=== PATIENT | female | born 1960 | race Caucasian/White ===

== ENCOUNTER 2019-08-22 09:54 | Outpatient (CLI) | payer MEDICARE, SELFPAY ==
[2019-08-22 10:33] LABS: Basophils Percent Auto 0.7 % (0.2-1.2); Eosinophils Absolute Auto 0.1 K/mm3 (0-0.3); Eosinophils Percent Auto 1.3 % (0-4.4); Hematocrit 41.4 % (37.0-47.0); Hemoglobin 13.2 g/dL (12.0-15.0); Immature Granulocyte Absolute 0.01 K/mm3 (0.00-0.031); Immature Granulocyte Percent A 0.2 % (0-0.5); Lymphocytes Absolute Auto 2.24 K/mm3 (0.9-3.2); Lymphocytes Percent Auto 41.6 % (18.3-44.2); Mean Corpuscular HGB Conc 31.9 g/dl (32-36); Mean Corpuscular Hemoglobin 29.1 pg (26-34); Mean Corpuscular Volume 91.4 fl (80-100); Monocytes Absolute Auto 0.3 K/mm3 (0.1-0.6); Monocytes Percent Auto 4.6 % (2.6-8.5); Neutrophils Absolute Auto 2.8 K/mm3 (1.3-6.7); Neutrophils Percent Auto 51.6 % (45.5-73.1); Platelet Count Result 344 k/mm3 (150-375); Red Blood Count 4.53 M/mm3 (4.2-5.4); Red Cell Distribution Width 12.9 % (11.5-14.5); White Blood Count 5.4 K/mm3 (4.5-10.0)
[2019-08-22 10:45] LABS: Alanine Aminotransferase 34 U/L (4-35); Albumin Level 4.6 g/dL (3.5-5.1); Alkaline Phosphatase 109 U/L (38-126); Aspartate Amino Transferase 36 U/L (14-36); Bilirubin,Total 0.3 mg/dL (0.2-1.3); Blood Urea Nitrogen 13 mg/dL (7-17); Calcium 9.4 mg/dL (8.4-10.2); Carbon Dioxide 29 mmol/L (22-30); Chloride 98 mmol/L (98-107); Cholesterol 216 mg/dL (0-200); Estimated Glomerular Filt Rate > 60; Glucose 90 mg/dL (65-105); HDL Direct 58 mg/dL; Potassium 4.4 mmol/L (3.4-5.0); Sodium 132 mmol/L (137-145); Triglycerides 107 mg/dL (<150)
[2019-08-22 10:56] LABS: LDL Cholesterol Direct 115 mg/dL
[2019-08-22 11:02] LABS: Hemoglobin A1C 5.3 % (<5.7)
== END 2019-08-22 09:55 | disposition home or self-care (01) ==
PROVIDERS: PCP Internal Medicine; Visit Provider Internal Medicine
DX: Z79.899 Other long term (current) drug therapy (principal); I10 Essential (primary) hypertension; E78.2 Mixed hyperlipidemia
CPT/HCPCS: 36415; 80048; 80061; 80076; 83036; 84443; 85025

== ENCOUNTER 2019-10-14 12:27 | Outpatient (CLI) | payer MEDICARE, SELFPAY ==
--- NOTE | ~2019-10-14 | CT_ITS ---
EXAMINATION: CT brain wo/w con DATE: 10/14/2019 13:38 INDICATION: Headache TECHNIQUE: Computed tomography (CT) of the head was performed without and with 75 mL Omnipaque-350 in travenous contrast. Sagittal and coronal reconstructions were performed. The mA was adjusted accordin g to patient size. Iterative reconstruction technique was employed. The dose-length product was 1210. 67 mGy-cm. COMPARISON: Brain MR dated 05/27/2018 FINDINGS: No acute intracranial hemorrhage, acute infarction or abnormal extra axial fluid collection. Ventricl es are normal and symmetric. No mass/mass effect. No abnormally enhancing lesions identified. Cerebra l vasculature appears normal with symmetric arborization and no evident aneurysms or hemodynamically significant stenosis. Mild calcified atherosclerotic plaque at the bilateral carotid siphons. Small a mount of dependent fluid in the left sphenoid sinus. The orbits and mastoid air cells are normal. IMPRESSION: 1. Normal brain. No acute intracranial process or abnormally enhancing brain lesions. 2. Small amount of fluid layering in the left sphenoid sinus. Correlate clinically for acute sinusiti s. Reviewed, dictated and finalized at location A. IMPRESSION: 1. Normal brain. No acute intracranial process or abnormally enhancing brain le sions. 2. Small amount of fluid layering in the left sphenoid sinus. Correlate clinica lly for acute sinusitis.
--- NOTE | ~2019-10-14 | XR_ITS ---
EXAMINATION:XR_[id number]_CR DATE: 10/14/2019 13:00 INDICATION: Right neck and shoulder pain TECHNIQUE: AP, lateral and odontoid views of the cervical spine are provided. COMPARISON: None FINDINGS: Slight reversal of the normal cervical lordosis. 2 mm retrolisthesis C5 on C6. Odontoid is intact. N ormal atlantoaxial interval. Vertebral body heights are normal. Moderate disc height loss at C5-C6 an d mild disc height loss at C4-C5. Moderate bilateral uncovertebral osteoarthritis at both these level s. Small posterior endplate osteophyte at C5 along with the slight retrolisthesis results in mild christian rowing of the central canal at this level. Multilevel mild bilateral cervical facet osteoarthritis. Prevertebral soft tissues are normal. The visualized apices of lungs are clear. IMPRESSION: 1. Moderate cervical spondylosis including 2 mm retrolisthesis C5 on C6. Reviewed, dictated and finalized at location A.
[2019-10-14 13:26] LABS: Estimated Glomerular Filt Rate > 60
== END 2019-10-14 12:28 | disposition home or self-care (01) ==
PROVIDERS: PCP Internal Medicine; Visit Provider Internal Medicine
DX: R51 Headache (principal); M25.511 Pain in right shoulder; M47.812 Spondylosis without myelopathy or radiculopathy, cervical region
CPT/HCPCS: 36415; 70470; 72040; Q9967

== ENCOUNTER 2019-10-29 10:01 | Outpatient (CLI) | payer MEDICARE, SELFPAY ==
--- NOTE | ~2019-10-29 | CT_ITS ---
EXAMINATION: CT chest wo con DATE: 10/29/2019 11:08 INDICATION: Lung nodule TECHNIQUE: Computed tomography (CT) of the chest was performed without intravenous contrast. The dose -length product (DLP) was 155.82 mGy-cm. Automated exposure control and iterative reconstruction tech [employer] were employed. COMPARISON: 01/07/2019, 04/29/2017 FINDINGS: There is a 6 mm groundglass nodule of the right lung apex on image 21. There is an unchange d 7 mm nodule of the right lower lobe on image 77. There are a few nodules measuring up to 3 mm in th e left upper lobe. There is mild emphysema. The lungs are free of focal airspace opacities. Dependent atelectasis is noted. There is no pleural effusion or pneumothorax. No pathologically enlarged thora cic lymph nodes are identified. The heart size is normal. A small sliding hiatal hernia is noted. The re is mild thoracic spondylosis. IMPRESSION: 1. Lung nodules as detailed above, probably old granulomatous disease. Follow-up CT in 6-12 months is recommended. Reviewed, dictated and finalized at location A. IMPRESSION: 1. Lung nodules as detailed above, probably old granulomatous disease. Follow-u p CT in 6-12 months is recommended.
[2019-10-29 10:45] LABS: Alanine Aminotransferase 34 U/L (4-35); Albumin Level 4.3 g/dL (3.5-5.1); Alkaline Phosphatase 95 U/L (38-126); Aspartate Amino Transferase 32 U/L (14-36); Bilirubin,Total 0.2 mg/dL (0.2-1.3); Cholesterol 187 mg/dL (0-200); HDL Direct 48 mg/dL; Triglycerides 95 mg/dL (<150)
[2019-10-29 10:57] LABS: LDL Cholesterol Direct 104 mg/dL
== END 2019-10-29 10:02 | disposition home or self-care (01) ==
PROVIDERS: PCP Internal Medicine; Visit Provider Internal Medicine
DX: E78.2 Mixed hyperlipidemia (principal); Z87.898 Personal history of other specified conditions; Z79.899 Other long term (current) drug therapy
CPT/HCPCS: 36415; 71250; 80061; 80076; 83735

== ENCOUNTER 2020-02-20 14:45 | Outpatient (CLI) | payer MEDICARE, SELFPAY ==
[2020-02-20 15:27] LABS: Add Urine Microscopic? YES; Appearance Urine Cloudy (Clear); Bilirubin Urine Negative (Negative); Blood Urine Negative (Negative); Color Urine Amber (Yellow); Glucose Urine UA Negative (Negative); Ketones Urine Negative (Negative); Leukocyte Esterase Ur Negative LEU/UL (NEGATIVE); Nitrate Urine Negative (Negative); Protein Urine Negative (Negative); RBC Urine 0-2 /hpf (0-2); Specific Grav Ur 1.012 (1.001-1.035); Squamous Epithelial Cell Urine Rare /hpf (Few); Urobilinogen Urine Negative mg/dL (<2.0); WBC Urine 0-3 /hpf (0-3)
[2020-02-20 15:38] LABS: Anion Gap 8 mmol/L (8-16); Blood Urea Nitrogen 21 mg/dL (7-17); Calcium 9.3 mg/dL (8.4-10.2); Carbon Dioxide 28 mmol/L (22-30); Chloride 101 mmol/L (98-107); Cholesterol 211 mg/dL (0-200); Estimated Glomerular Filt Rate > 60; Glucose 88 mg/dL (65-105); HDL Direct 64 mg/dL; Potassium 4.9 mmol/L (3.4-5.0); Sodium 137 mmol/L (137-145); Triglycerides 103 mg/dL (<150)
[2020-02-20 15:49] LABS: LDL Cholesterol Direct 111 mg/dL
[2020-02-20 16:05] LABS: Hemoglobin A1C 5.1 % (<5.7)
[2020-02-25 09:24] LABS: Vitamin D 1,25 (OH)2 Total 51 pg/mL (18-72); Vitamin D2 1,25 (OH)2 <8 pg/mL; Vitamin D3 1,25 (OH)2 51 pg/mL
== END 2020-02-20 14:46 | disposition home or self-care (01) ==
PROVIDERS: PCP Internal Medicine; Visit Provider Internal Medicine
DX: E55.9 Vitamin D deficiency, unspecified (principal); E78.2 Mixed hyperlipidemia; I10 Essential (primary) hypertension; Z79.899 Other long term (current) drug therapy
CPT/HCPCS: 36415; 80048; 80061; 81001; 82652; 83036

== ENCOUNTER 2020-04-07 09:02 | Emergency (ER) | payer MEDICARE, SELFPAY ==
[2020-04-07] VITALS (21 sets, daily range): BP systolic 141–163; BP diastolic 59–84; PULSE 63–82; RESP 11–19; TEMP 36; O2SAT 97–100
--- NOTE | ~2020-04-07 | US_ITS ---
EXAMINATION: US right upper quadrant DATE: 04/07/2020 10:14 INDICATION: Abdominal pain. TECHNIQUE: Multiple grayscale and Doppler ultrasound images of the abdomen were obtained. COMPARISON: CT abdomen and pelvis 01/07/2019 FINDINGS: The visualized portions of the head of the pancreas are normal. The liver is normal without focal lesion. No liver surface nodularity. There is normal flow in main portal vein. There are galls tones in the gallbladder, which is distended. Gallbladder wall thickening is noted. There is a positi ve sonographic Sr sign. The common duct is normal and measures 5 mm. IMPRESSION: 1. Acute cholecystitis. Reviewed, dictated and finalized at location A. SPORT CONDUCTOR IMPRESSION: 1. Acute cholecystitis.
--- NOTE | 2020-04-07 09:18 | ED.GENADULT ---
HPI - General Adult General Chief complaint: Abdominal Pain Stated complaint: Upper Right ABD Pain, Sent from PCP Time Seen by Provider: 04/07/20 09:05 Source: RN notes reviewed History of Present Illness HPI narrative: Patient presents emergency department from home for right upper quad abdominal pain. Patient states pain began approximately 2:30 AM this morning located right upper quadrant radiates around to the right back described as aching in nature. Associate with nausea. Denies any fevers or chills chest pain shortness of breath vomiting diarrhea or any other symptoms. Was seen by her PCP this morning and referred to the ED for further evaluation Related Data Home Medications Medication Instructions Recorded Confirmed cholecalciferol (vitamin D3) 25 1,000 unit PO DAILY 04/14/19 03/01/20 mcg (1,000 unit) capsule multivitamin 1 tablet PO DAILY 04/14/19 03/01/20 promethazine 25 mg tablet 25 mg PO ONCE PRN tablet 08/28/19 03/01/20 magnesium citrate 100 mg tablet 750 mg PO DAILY tablet 03/01/20 03/01/20 trazodone 100 mg tablet See Rx Instructions .ROUTE 03/01/20 03/01/20 .COMPLEX PRN tablet cetirizine [Zyrtec] 10 mg PO DAILY 04/07/20 duloxetine 30 mg PO DAILY 04/07/20 omega 8-boa-hmm-fish oil [Fish Oil] 4,000 PO 04/07/20 polyethylene glycol 3350 See Rx Instructions .ROUTE .COMPLEX 04/07/20 Allergies Allergy/AdvReac Type Severity Reaction Status Date / Time amoxicillin Allergy Unknown Rash Verified 04/07/20 09:19 Penicillins Allergy Unknown Rash Verified 04/07/20 09:19 Sulfa (Sulfonamide Allergy Unknown Rash Verified 04/07/20 09:19 Antibiotics) levofloxacin AdvReac Unknown Other Verified 04/07/20 09:19 shellfish derived AdvReac Unknown Anaphylaxis Verified 04/07/20 09:19 Neawllw-Lry-Jrc Reductase AdvReac Unknown Muscle Pain Verified 04/07/20 09:19 Inhibitor Review of Systems Review of Systems: Narrative: Gen.: Denies fevers or chills ENT: Denies congestion Respiratory: Denies shortness of breath or cough CV: Denies chest pain or palpitations GI: See HPI denies burning, urgency, frequency or hematuria Musculoskeletal: Denies back pain or muscle pain Neuro: Denies numbness, tingling, weakness or focal weakness Skin: Denies rash Except as documented, all other systems reviewed and negative [facility] Past Medical History Medical History Anxiety Benign essential hypertension BMI 30.0-30.9,adult Colon cancer screening Dyslipidemia Encounter for preventive health examination Encounter for routine adult health examination without abnormal findings Encounter for screening mammogram for malignant neoplasm of breast Exposure to COVID-19 virus Follow up Frequent headaches Hx of solitary pulmonary nodule Hyperlipidemia Influenza vaccine needed Insomnia Lung nodule Migraines 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) Mother Family history of obesity Cerebrovascular accident Family history of heart disease in male family member before age 55 Sibling Depression Cerebrovascular accident Family history of malignant neoplasm of breast in first degree relative Family history of heart disease in male family member before age 55 Father Malignant neoplasm of prostate Family history of heart disease in male family member before age 55 Social History Social History Smoking status: Former smoker Second hand tobacco smoke exposure: No Smoking end date: 05/07/10 Alcohol intake: never Gender identity (if verbalized by the patient): Female Exam Narrative: Exam Narrative: APPEARANCE: No acute distress, nontoxic, resting in bed HEENT: Normocephalic
[2020-04-07 09:31] LABS: Basophils Percent Auto 0.1 % (0.2-1.2); Eosinophils Percent Auto 0.3 % (0-4.4); Hematocrit 37.5 % (37.0-47.0); Hemoglobin 12.5 g/dL (12.0-15.0); Immature Granulocyte Absolute 0.01 K/mm3 (0.00-0.031); Immature Granulocyte Percent A 0.1 % (0-0.5); Lymphocytes Absolute Auto 1.44 K/mm3 (0.9-3.2); Lymphocytes Percent Auto 21.3 % (18.3-44.2); Mean Corpuscular HGB Conc 33.3 g/dl (32-36); Mean Corpuscular Hemoglobin 29.9 pg (26-34); Mean Corpuscular Volume 89.7 fl (80-100); Mean Platelet Volume 10.9 fl (7.4-10.4); Monocytes Absolute Auto 0.2 K/mm3 (0.1-0.6); Monocytes Percent Auto 2.2 % (2.6-8.5); Neutrophils Absolute Auto 5.1 K/mm3 (1.3-6.7); Platelet Count Result 316 k/mm3 (150-375); Red Blood Count 4.18 M/mm3 (4.2-5.4); Red Cell Distribution Width 12.8 % (11.5-14.5); White Blood Count 6.8 K/mm3 (4.5-10.0)
[2020-04-07] MEDS: ONDANSETRON INJ 4 MG/2 ML VIAL IV PUSH (09:39)
[2020-04-07] MEDS: SODIUM CHLORIDE 0.9% IV 1,000 ML 999 ML IV CONT (09:40)
[2020-04-07 09:43] LABS: Alanine Aminotransferase 34 U/L (4-35); Albumin Level 4.3 g/dL (3.5-5.1); Alkaline Phosphatase 98 U/L (38-126); Anion Gap 8 mmol/L (8-16); Aspartate Amino Transferase 29 U/L (14-36); Bilirubin,Total 0.1 mg/dL (0.2-1.3); Blood Urea Nitrogen 15 mg/dL (7-17); Calcium 9.3 mg/dL (8.4-10.2); Carbon Dioxide 27 mmol/L (22-30); Chloride 105 mmol/L (98-107); Estimated CRCL calculation 76 ml/min; Estimated Glomerular Filt Rate > 60; Glucose 118 mg/dL (65-105); Lipase 133 U/L (23-300); Potassium 3.8 mmol/L (3.4-5.0); Sodium 140 mmol/L (137-145)
[2020-04-07 09:59] LABS: Add Urine Microscopic? YES; Appearance Urine Cloudy (Clear); Bilirubin Urine Negative (Negative); Blood Urine Negative (Negative); Color Urine Yellow (Yellow); Glucose Urine UA Negative (Negative); Ketones Urine Negative (Negative); Leukocyte Esterase Ur Negative LEU/UL (Negative); Mucus Urine Rare /lpf; Nitrate Urine Negative (Negative); Protein Urine 2+ mg/dL (Negative); RBC Urine 0-2 /hpf (0-2); Specific Grav Ur 1.019 (1.001-1.035); Squamous Epithelial Cell Urine Occasional /hpf (Few); Transitional Epi Cells Urine Rare /hpf (None Seen); Urobilinogen Urine Negative mg/dL (<2.0); WBC Urine 0-3 /hpf
--- NOTE | 2020-04-07 10:57 | PC.NURSE ---
pt refuses morphine at this time. will notify nurse if pain worsens. current level 3/10
[2020-04-07] MEDS: CEPHALEXIN 500 MG CAPSULE PO (11:43)
[2020-04-07] MEDS: MORPHINE SULFATE (*CRX) 2 MG/ML INJ IV PUSH (11:44)
== END 2020-04-07 13:04 | disposition home or self-care (01) ==
PROVIDERS: Emergency Provider Emergency Medicine; PCP Internal Medicine
DX: K81.0 Acute cholecystitis (principal); F41.9 Anxiety disorder, unspecified; I10 Essential (primary) hypertension; E78.5 Hyperlipidemia, unspecified
CPT/HCPCS: 36415; 76705; 80053; 81001; 83690; 85025; 96365; 96375; 99284; A9270; J0131; J2270; J2405; J7030

== ENCOUNTER 2020-04-08 12:22 | Outpatient (CLI) | payer MEDICARE, SELFPAY ==
--- NOTE | 2020-04-08 12:24 | ECG_ITS ---
Measurements Intervals [place] Rate: 61 P: 49 NC: 160 QRS: 28 QRSD: 77 T: 29 QT: 383 QTc: 386 Interpretive Statements SINUS RHYTHM BASELINE ARTIFACT- I, II, III, AVR, AVL, AVF, V6 NORMAL ECG Electronically Signed On 04-08-2020 13:01:17 [employer] by Jb Carroll D.O.
[2020-04-08 13:22] LABS: Alanine Aminotransferase 33 U/L (4-35); Albumin Level 4.3 g/dL (3.5-5.1); Alkaline Phosphatase 96 U/L (38-126); Amylase 84 U/L (30-110); Aspartate Amino Transferase 30 U/L (14-36); Bilirubin,Total 0.3 mg/dL (0.2-1.3); Lipase 119 U/L (23-300)
== END 2020-04-08 12:23 | disposition home or self-care (01) ==
LOC: ANHSURGERY 12:24
PROVIDERS: PCP Internal Medicine; Visit Provider Surgery
DX: Z01.810 Encounter for preprocedural cardiovascular examination (principal); K80.10 Calculus of gallbladder with chronic cholecystitis without obstruction; E78.5 Hyperlipidemia, unspecified
CPT/HCPCS: 36415; 80076; 82150; 83690; 86850; 86900; 86901; 93005

== ENCOUNTER 2020-04-10 00:38 | Outpatient (CLI) | payer MEDICARE, SELFPAY ==
[2020-04-10 19:13] LABS: SARS-CoV-2 RNA PCR Negative
== END 2020-04-10 00:39 | disposition home or self-care (01) ==
LOC: ANHCOVIDDT 00:38
PROVIDERS: PCP Internal Medicine; Visit Provider Surgery
DX: Z01.812 Encounter for preprocedural laboratory examination (principal); Z20.828 Contact with and (suspected) exposure to other viral communicable diseases
CPT/HCPCS: 87635; C9803; U0003

== ENCOUNTER 2020-04-13 01:22 | Day surgery (SDC) | payer MEDICARE, SELFPAY ==
[2020-04-08 11:56] VITALS: BMI 30.9
[2020-04-13] VITALS (8 sets, daily range): BP systolic 113–146; BP diastolic 65–80; PULSE 73–96; RESP 10–20; TEMP 36.2–36.3; O2SAT 96–100
--- NOTE | 2020-04-13 11:10 | WPDHPUPDATE1 ---
History and Physical Update Update Date/Time: 04/13/20 11:10 History and Physical has been reviewed, including an updated exam of the patient. There are NO changes in the patient's condition. Risks, benefits, and alternatives have been discussed and questions answered. Patient agrees to proceed with procedure.
[2020-04-13] MEDS: ACETAMINOPHEN 500 MG TABLET 1000 MG PO (11:13)
[2020-04-13] MEDS: LACTATED RINGERS 1,000 ML 30 ML IV CONT ×2 (11:55→14:43)
[2020-04-13] MEDS: KETOROLAC 15 MG/ML VIAL (*BKC) IV PUSH (12:03)
--- NOTE | 2020-04-13 12:36 | WPDANESEPPF ---
Anes - Initial Pre Proc Eval Procedure: Operation Date: 04/13/20 13:00 Proposed Procedures p Laparoscopic Cholecystectomy - Josh Randhawa MD Date/Time: 04/13/20 12:36 Surgeon: Josh Randhawa MD Pre Op Diagnosis: Cholecystitis with Stones Patient Data Age: 59 Gender: F Height: 5 ft 4 in Weight: 81.8 kg Allergies Allergy/AdvReac Type Severity Reaction Status Date / Time amoxicillin Allergy Unknown Rash Verified 04/13/20 12:03 Penicillins Allergy Unknown Rash Verified 04/13/20 12:03 Sulfa (Sulfonamide Allergy Unknown Rash Verified 04/13/20 12:03 Antibiotics) levofloxacin AdvReac Unknown Other Verified 04/13/20 12:03 shellfish derived AdvReac Unknown Anaphylaxis Verified 04/13/20 12:03 Fsqxcub-Dff-Uuh Reductase AdvReac Unknown Muscle Pain Verified 04/13/20 12:03 Inhibitor Home Medications Medication Instructions Recorded Confirmed Type cholecalciferol (vitamin D3) 25 1,000 unit PO DAILY 04/14/19 04/13/20 History mcg (1,000 unit) capsule multivitamin 1 tablet PO DAILY 04/14/19 04/13/20 History chlorhexidine gluconate 0.12 % 15 ml BUCCAL BID #15 ml 07/21/19 04/13/20 Rx mouthwash promethazine 25 mg tablet 25 mg PO ONCE PRN tablet 08/28/19 04/08/20 History tizanidine 4 mg tablet 4 mg PO TID PRN #90 tablet 09/30/19 04/13/20 Rx magnesium citrate 100 mg tablet 375 mg PO BID tablet 03/01/20 04/13/20 History trazodone 100 mg tablet See Rx Instructions .ROUTE 03/01/20 04/08/20 History .COMPLEX PRN tablet topiramate 100 mg tablet 100 mg PO .HS #30 tablet 03/12/20 04/13/20 Rx Emgality Pen 120 mg/mL 240 mg SUBCUT MONTHLY #2 ml NS 03/22/20 04/13/20 Rx subcutaneous pen injector pravastatin 40 mg tablet 40 mg PO DAILY #30 tablet 03/22/20 04/13/20 Rx cephalexin [Keflex] 500 mg PO Q6H #40 cap 04/07/20 04/13/20 Rx cetirizine [Zyrtec] 10 mg PO HS 04/07/20 04/13/20 History duloxetine 30 mg PO HS 04/07/20 04/13/20 History hydrocodone-acetaminophen 1 tablet PO Q4H PRN #10 tablet 04/07/20 04/13/20 Rx ibuprofen [IBU] 600 mg PO Q6H PRN #20 tablet 04/07/20 04/13/20 Rx omega 4-omh-xzg-fish oil [Fish Oil] 1 cap PO QAM 04/07/20 04/13/20 History polyethylene glycol 3350 See Rx Instructions .ROUTE .COMPLEX 04/07/20 04/08/20 History colesevelam 625 mg tablet See Rx Instructions .ROUTE 04/08/20 Rx .COMPLEX #540 each ezetimibe [Zetia] 5 mg PO HS 04/08/20 04/13/20 History lisinopril 10 mg PO HS 04/08/20 04/13/20 History verapamil 180 mg PO QAM 04/08/20 04/13/20 History Patient hx anesthesia problems: none Family hx anesthesia problems: none PMFSH Past Medical History Medical History Anxiety Benign essential hypertension BMI 30.0-30.9,adult Colon cancer screening Depression Dyslipidemia Encounter for preventive health examination Encounter for routine adult health examination without abnormal findings Encounter for screening mammogram for malignant neoplasm of breast Exposure to COVID-19 virus Follow up Frequent headaches GERD (gastroesophageal reflux disease) Hx of solitary pulmonary nodule Hyperlipidemia Influenza vaccine needed Insomnia Lung nodule Migraines 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 Oral lichen planus Post menopausal syndrome Postmenopausal Right shoulder pain RUQ abdominal pain Sinusitis Sore throat Statin intolerance Vitamin D deficiency Surgical History Surgical History History of rhinoplasty History of tonsillectomy and adenoidectomy S/P scar revision [place] teeth removed Family History Family History Mother Family history of obesity Cerebrovascular accident Family history of heart disease in male family member before age 55 Hypertension Sibling Depression Cerebrovascular accident Family history of malignant neoplasm of breast in first degree relative Family history of heart disease in male family member b
[2020-04-13] MEDS: ceFAZolin 2 GM/D5W 50 ML 2 GM/50 ML BAG IVPB (13:14)
--- NOTE | 2020-04-13 14:40 | P.OP_ITS ---
Procedure Note - Detailed Date of procedure: 04/13/20 Pre-op diagnosis: Cholecystitis with Stones Chronic cholecystitis, cholelithiasis Post-op diagnosis: same Procedure performed: Laparoscopic cholecystectomy Description of procedure: The patient was taken to surgery and induced into general anesthesia. The abdomen was prepped and draped. Trocars were placed in the usual fashion using 0.5% Marcaine with epinephrine and applied Medical optical trocars. A 5 millimeter camera was used. The gallbladder was encased with omental adhesions. These adhesions were taken down 1st from the liver edge and then from around the upper aspect of the gallbladder. Once the fundus was exposed, the gallbladder was decompressed with a laparoscopic aspirator. The cholecystotomy was closed with a Vicryl endo-loop. The gallbladder was retracted anterosuperiorly. Many more adhesions to the gallbladder were taken down so that the cholecystohepatic triangle was exposed. Traction was placed on the infundibulum. The cystic duct and cystic artery were dissected out very clearly. The gallbladder was dissected off the liver at its lower 3rd. Critical view was achieved. We securely clipped and divided the cystic duct and cystic artery. The gallbladder was then further retracted so that the peritoneal attachments to the liver could be divided. Once the gallbladder was freed entirely, it was placed in an Endo-Catch bag and retrieved through the 10 11 epigastric trocar site. The epigastric trocar was then replaced. We reviewed the right upper quadrant. It was irrigated and suctioned. Some additional cautery was required. Eventually, all looked good with no evidence of bleeding or bile leakage. We evacuated CO2 and removed the trocar sleeves. The fascia at the epigastric trocar site was closed with 0 Vicryl suture. Skin wounds were closed with subcuticular 4 O Monocryl skin suture. The wounds were dressed with Exofin surgical adhesive. Patient was awakened and taken to recovery in good condition. Sponge and needle counts were correct x2. Anesthesia: GETA and local (0.5% Marcaine with epinephrine) Surgeon: Josh Randhawa MD Equipment Maint Tech: Christopher GUSMAN Estimated blood loss (mL): 20 Drains: No Packing: No Pathology: yes (Gallbladder) Complications: None Condition: stable Disposition: PACU Findings: Chronic inflammation, many omental adhesions, several gallstones noted. No biliary ductal dilatation, no liver abnormalities.
[2020-04-13] MEDS: oxyCODONE HCL (*CRX) 5 MG TAB IR PO (15:31)
== END 2020-04-13 16:25 | disposition home or self-care (01) ==
PROVIDERS: PCP Internal Medicine; Visit Provider Surgery
PROC: 0FT44ZZ Resection of Gallbladder, Percutaneous Endoscopic Approach (ICD-10-PCS; CPT 47562; principal; 2020-04-13 13:00)
DX: K80.10 Calculus of gallbladder with chronic cholecystitis without obstruction (principal); I10 Essential (primary) hypertension; E78.5 Hyperlipidemia, unspecified; K21.9 Gastro-esophageal reflux disease without esophagitis; E55.9 Vitamin D deficiency, unspecified; F41.8 Other specified anxiety disorders; Z87.891 Personal history of nicotine dependence
CPT/HCPCS: 47562; 88304; A9270; C1713; J0330; J0690; J1100; J1885; J2250; J2405; J2704; J2710; J3010; J7120

== ENCOUNTER → 2020-07-17 06:59 | Outpatient (CLI) | payer MEDICARE, SELFPAY ==
[2020-07-17 18:54] LABS: SARS-CoV-2 RNA PCR Negative
== END ==
PROVIDERS: PCP Internal Medicine; Visit Provider Internal Medicine
DX: Z20.822 Contact with and (suspected) exposure to COVID-19 (principal); R05 Cough
CPT/HCPCS: C9803; U0003; U0005

== ENCOUNTER 2020-10-26 12:56 | Outpatient (CLI) | payer MEDICARE, SELFPAY ==
--- NOTE | ~2020-10-26 | DEXA_ITS ---
Bone Density Report Name: Cecile Lilly Age: 60 Sex: Female Ethnicity: White Date of : 1960 Indication: postmenopausal; height loss; prior fracture; Referring Provider: JERMAN RODRIGUEZ Study: Bone densitometry was performed. Exam Date: October 26, 2020 Accession number: [id number] Bone Density: Region BMD T-score Z-score Classification AP Spine (L1-L4) 0.867 -1.6 -0.1 Osteopenia Femoral Neck (Left) 0.639 -1.9 -0.5 Osteopenia Total Hip (Left) 0.829 -0.9 0.1 Normal Total Hip Bilateral Avg 0.880 -0.5 0.5 Normal Femoral Neck (Right) 0.748 -0.9 0.4 Normal Total Hip (Right) 0.929 -0.1 0.9 Normal World Health Organization criteria for BMD impression classify patients as: Normal (T-score at or above -1.0), Osteopenia (T-score between -1.0 and -2.5), or Osteoporosis (T-score at or below -2.5). 10-year Fracture Risk(1): Major Osteoporotic Fracture 15% Hip Fracture 1.8% Reported Risk Factors: [place] (), Neck BMD=0.639, BMI=28.9, previous fracture (1) FRAX(R) Version 3.08. Fracture probability calculated for an untreated patient. Fracture probability may be lower if the patient has received treatment. Previous Exams: Region Exam Age BMD T-score BMD Change BMD Change Date g/cm2 vs Baseline vs Previous AP Spine(L1-L4) 10/26/2020 60 0.867 -1.6 -0.084(-8.8%)# -0.084(-8.8%)# 02/02/2010 49 0.951 -0.9 Total Hip(Left) 10/26/2020 60 0.829 -0.9 -0.089(-9.7%)# -0.089(-9.7%)# 02/02/2010 49 0.918 -0.2 Total Hip(Right) 10/26/2020 60 0.929 -0.1 0.012(1.3%)# 0.012(1.3%)# 02/02/2010 49 0.917 -0.2 *Denotes significance at 95% confidence level, LSC for AP Spine = 0.022 g/cm2, LSC for Total Hip = 0.027 g/cm2 Clinical Information Provided by Patient: Has had a low trauma fracture Has used the following medications: Vitamin D Patient maximum height was 64.5 No regular weight bearing exercise Onset of menses at age 14 Number of children 0 Impression: The patient has low bone mass, based on the Left Femoral Neck T-score. The patient has an estimated ten-year risk of hip fracture of 1.8% and an estimated ten-year risk of major fracture of 15%, based on the WHO FRAX algorithm. The patient has risk factors, including: previous fracture. No significant bone loss was observed. There is hypertrophic degenerative change of the lumbar spine, which results in higher than expected spine bone mineral density measurements. These spine BMD and T sco
== END 2020-10-26 12:57 | disposition home or self-care (01) ==
PROVIDERS: PCP Internal Medicine; Visit Provider Internal Medicine
DX: M85.88 Other specified disorders of bone density and structure, other site (principal); M85.852 Other specified disorders of bone density and structure, left thigh
CPT/HCPCS: 77080

== ENCOUNTER 2020-11-16 13:02 | Outpatient (CLI) | payer MEDICARE, SELFPAY ==
--- NOTE | ~2020-11-16 | CT_ITS ---
EXAMINATION: CT diagnostic chest wo con EXAM DATE: 11/16/2020 13:31 INDICATION: Six-month follow-up Solitary pulmonary nodule. TECHNIQUE: Spiral CT of the chest without contrast. Axial, coronal and sagittal images of the chest were reviewed. Coronal maximum intensity pixel images of chest reviewed. The dose-length product ( DLP) for this examination was 82.72 mGy-cm. The exposure was tailored according to patient size (aut o mA exposure control), and iterative reconstruction (ASIR) was used as additional dose reduction katharine hnique. Comparison is made to prior examination from 10/29/2019. FINDINGS: There is 7 mm right lower lobe noncalcified granuloma unchanged. Groundglass subsolid righ t upper lobe nodule on image 19 also stable, along with several other smaller right upper lobe ground glass nodules. Likely postinfectious. There is mild emphysema. No endobronchial nodule. There are no pleural or pericardial effusions. Tracheobronchial tree is patent. There is no mediastinal, hilar or axillary lymphadenopathy. There is no pneumothorax. Heart normal in size. No evidence of co ronary arterial calcification. Cholecystectomy clips. Upper abdomen is unremarkable. There is thor acic spondylosis without osteoblastic or osteolytic lesions identified. IMPRESSION: 1. Stable nodules likely post infectious. 2. Mild emphysema. Reviewed, dictated and finalized at location A.
== END 2020-11-16 13:03 | disposition home or self-care (01) ==
PROVIDERS: PCP Internal Medicine; Visit Provider Internal Medicine
DX: R91.8 Other nonspecific abnormal finding of lung field (principal); J43.9 Emphysema, unspecified
CPT/HCPCS: 71250

== ENCOUNTER → 2020-11-22 08:23 | Outpatient (CLI) | payer MEDICARE, SELFPAY ==
[2020-11-22 20:30] LABS: SARS-CoV-2 RNA PCR Negative
== END ==
PROVIDERS: PCP Internal Medicine; Visit Provider Internal Medicine
DX: R68.89 Other general symptoms and signs (principal); Z20.822 Contact with and (suspected) exposure to COVID-19
CPT/HCPCS: C9803; U0003; U0005

== ENCOUNTER 2020-11-25 15:45 | Outpatient (CLI) | payer MEDICARE, SELFPAY ==
[2020-11-25 16:39] LABS: Anion Gap 11 mmol/L (8-16); Blood Urea Nitrogen 17 mg/dL (7-17); Calcium 9.5 mg/dL (8.4-10.2); Carbon Dioxide 23 mmol/L (22-30); Chloride 101 mmol/L (98-107); Cholesterol 191 mg/dL (0-200); Estimated Glomerular Filt Rate 56; Glucose 97 mg/dL (65-110); HDL Direct 69 mg/dL; Potassium 4.6 mmol/L (3.4-5.0); Sodium 135 mmol/L (137-145); Triglycerides 66 mg/dL (<150)
[2020-11-25 16:50] LABS: LDL Cholesterol Direct 77 mg/dL
[2020-11-25 17:59] LABS: Free T4 Free Thyroxine 0.83 ng/mL (0.78-2.19)
[2020-11-30 19:55] LABS: Homocysteine 8.5 umol/L (<10.4)
== END 2020-11-25 15:46 | disposition home or self-care (01) ==
LOC: ANHLAB 15:47
PROVIDERS: PCP Internal Medicine; Visit Provider Internal Medicine
DX: E78.2 Mixed hyperlipidemia (principal); Z79.899 Other long term (current) drug therapy; I10 Essential (primary) hypertension
CPT/HCPCS: 36415; 80048; 80061; 83090; 84439; 84443

== ENCOUNTER → 2020-11-30 11:04 | Outpatient (CLI) | payer MEDICARE, SELFPAY ==
--- NOTE | ~2020-11-30 | XR_ITS ---
EXAMINATION: XR barium swallow EXAM DATE: 11/30/2020 11:47 INDICATION: R13.10 - Dysphagia, unspecified . Sometimes pills get stuck. TECHNIQUE: Standard thick followed by thin contrast barium esophagram examination was performed by Dr Joselyn Tejeda, radiologist. Additionally, patient swallowed an 11 mm tablet. Pulsed dose reduction fl uoroscopy was used with fluoroscopic time of 0.9 minutes. The DAP for this procedure was 0.5 Gycm2. A total of 182 images obtained for the exam. FINDINGS: There is approximately 6 mm round contour abnormality in the right vallecula inferolaterall y. Correlation is made to a prior MRI examination from 2006, and there is some asymmetry in the vall ecula in this exact location. Uncertain histology or reason for this finding, but given its smooth ma rgin and that there is some evidence it was present 2006, probably not a clinically significant findi ng. If it were to be further evaluated, direct visualization would be made. There is no esophageal stricture or mass identified. There are no esophageal diverticula. Small to m oderate sliding gastroesophageal hiatal hernia. Reflux was not demonstrated during the examination. Asad mendoza was able to ingest an 11 mm barium tablet without difficulty. Correlation was made with prior cervical MRI examination 2006. There is slight asymmetry in the thakur cula on that exam IMPRESSION: 1. Small round smooth contour abnormality in right vallecula, most likely chronic and not a clinical ly significant finding. 2. Small to moderate sliding gastroesophageal hiatal hernia. Reviewed, dictated and finalized at location G. IMPRESSION: 1. Small round smooth contour abnormality in right vallecula, most likely cafeteria or lunchroom checker samantha and not a clinically significant finding. 2. Small to moderate sliding gastroesophageal hiatal hernia.
== END ==
PROVIDERS: PCP Internal Medicine; Visit Provider Otolaryngology
DX: R13.10 Dysphagia, unspecified (principal); K44.9 Diaphragmatic hernia without obstruction or gangrene
CPT/HCPCS: 74220

== ENCOUNTER → 2020-12-28 02:48 | Outpatient (CLI) | payer MEDICARE, SELFPAY ==
[2020-12-28 19:42] LABS: SARS-CoV-2 RNA PCR Negative
== END ==
PROVIDERS: PCP Internal Medicine; Visit Provider Internal Medicine
DX: Z20.828 Contact with and (suspected) exposure to other viral communicable diseases (principal)
CPT/HCPCS: C9803; U0003; U0005

== ENCOUNTER 2021-04-16 09:05 | Outpatient (CLI) | payer MEDICARE, SELFPAY ==
[2021-04-16 09:33] LABS: Cholesterol 200 mg/dL (0-200); HDL Direct 63 mg/dL; Triglycerides 82 mg/dL (<150)
[2021-04-16 09:44] LABS: LDL Cholesterol Direct 99 mg/dL
== END 2021-04-16 09:06 | disposition home or self-care (01) ==
LOC: ANHLAB 09:07
PROVIDERS: PCP Internal Medicine; Visit Provider Internal Medicine
DX: E78.5 Hyperlipidemia, unspecified (principal)
CPT/HCPCS: 36415; 80061

== ENCOUNTER 2021-05-09 08:40 | Outpatient (CLI) | payer MEDICARE, SELFPAY ==
[2021-05-09 10:55] LABS: Influenza A QL RT-PCR Negative (Negative); Influenza B QL RT-PCR Negative (Negative); SARS-CoV-2 RNA PCR Negative (Negative)
== END 2021-05-09 08:41 | disposition home or self-care (01) ==
LOC: CHSLAB 08:46
PROVIDERS: PCP Internal Medicine; Visit Provider Internal Medicine
DX: R50.9 Fever, unspecified (principal); R05.9 Cough, unspecified; Z20.822 Contact with and (suspected) exposure to COVID-19
CPT/HCPCS: 87502; C9803; U0003; U0005

== ENCOUNTER → 2021-11-11 02:02 | Outpatient (CLI) | payer MEDICARE, SELFPAY ==
[2021-11-11 12:26] LABS: SARS-CoV-2 RNA PCR Negative
== END ==
PROVIDERS: PCP Internal Medicine; Visit Provider Internal Medicine
DX: Z01.818 Encounter for other preprocedural examination (principal); R68.89 Other general symptoms and signs
CPT/HCPCS: C9803; U0003; U0005

== ENCOUNTER 2021-11-29 18:01 | Outpatient (CLI) | payer MEDICARE, SELFPAY ==
--- NOTE | ~2021-11-29 | CT_ITS ---
EXAMINATION: CT lung screening DATE: 11/29/2021 18:22 INDICATION: Solitary pulmonary nodule TECHNIQUE: Computed tomography (CT) of the chest was performed without intravenous contrast. The dose -length product (DLP) was 79.06 mGy-cm. Automated exposure control and iterative reconstruction techn ique were employed. COMPARISON: 11/16/2020, 10/29/2019 FINDINGS: There is a stable 6 mm groundglass nodule of the right lung apex. There is a stable 7 mm no dule of the right lower lobe with smaller adjacent nodules. There are stable small nodules in the lef t upper lobe measuring up to 3 mm. No new pulmonary nodules are identified. The lungs are free of acu te opacities. No pleural effusion or pneumothorax. No pathologically enlarged thoracic lymph nodes ar e identified. The heart size is normal. Calcified coronary artery atherosclerosis is noted. There is mild thoracic spondylosis. IMPRESSION: 1. Stable pulmonary nodules, likely postinfectious/old granulomatous disease. Reviewed, dictated and finalized at location B.
== END 2021-11-29 18:02 | disposition home or self-care (01) ==
PROVIDERS: PCP Internal Medicine; Visit Provider Internal Medicine
DX: R91.8 Other nonspecific abnormal finding of lung field (principal)
CPT/HCPCS: 71250; 71271

== ENCOUNTER 2022-01-03 10:12 | Outpatient (CLI) | payer MEDICARE, SELFPAY ==
[2022-01-03 10:44] LABS: CRP < 0.5 mg/dL (<1.0)
[2022-01-03 11:07] LABS: Erythrocyte Sedimentation Rate 19 mm/hr (0-20)
== END 2022-01-03 10:13 | disposition home or self-care (01) ==
LOC: ANHLAB 10:15
PROVIDERS: PCP Internal Medicine; Visit Provider Internal Medicine
DX: Z79.899 Other long term (current) drug therapy (principal); G43.909 Migraine, unspecified, not intractable, without status migrainosus
CPT/HCPCS: 36415; 85652; 86140

== ENCOUNTER 2022-01-11 10:43 | Outpatient (CLI) | payer MEDICARE, SELFPAY ==
--- NOTE | 2022-01-11 10:30 | ECG_ITS ---
Measurements Intervals Tully Rate: 78 P: 50 ID: 140 QRS: 34 QRSD: 80 T: 27 QT: 341 QTc: 388 Interpretive Statements SINUS RHYTHM LOW QRS VOLTAGE IN PRECORDIAL LEADS BASELINE ARTIFACT- I, II, III, AVR, AVL, AVF, V1-V6 NORMAL ECG COMPARED TO ECG 04/08/2020 13:21:58 NO SIGNIFICANT CHANGES Electronically Signed On 01-11-2022 12:42:29 CDT by Jb Carroll D.O.
== END 2022-01-11 10:44 | disposition home or self-care (01) ==
PROVIDERS: PCP Internal Medicine; Visit Provider Otolaryngology
DX: Z01.810 Encounter for preprocedural cardiovascular examination (principal); E78.2 Mixed hyperlipidemia
CPT/HCPCS: 93005

== ENCOUNTER 2022-01-13 01:24 | Day surgery (SDC) | payer MEDICARE, SELFPAY ==
[2022-01-11 09:41] VITALS: BMI 28.3
--- NOTE | 2022-01-11 09:47 | PC.NURSE ---
Addendum entered by Angela Carlson RN 01/11/22 10:31: PT MAY TAKE DULOXETINE AND TIZANIDINE (IF NEEDED) MORNING OF SURGERY WITH A SMALL SIP OF WATER. Original Note: Report to the Outpatient Waiting Room, entrance under the green pavilion located off [facility], at time _1245_ on date _[id number]_. OR Time: _245pm_. - You and your visitor will be asked to self-screen and do not enter if you have any COVID symptoms. - Only one visitor and NO children visitors are allowed at this time. - The patient visitor is requested to leave or wait in car when not with patient due to restrictions. - A mask is required within the hospital. Patients may have clear liquids (water, carbonated beverages, clear teas, apple juice) until 3 hours prior to surgery with a maximum of 20 ounces. - No food from midnight until time of surgery Take the following medications with a SIP of water the morning of surgery: ____Prednisone and nose sprays Medications to discontinue per physician All vitamins and supplements Date to take last dose____stop today. Please no make-up, nail bahraini, hairspray, perfume, deodorant, or body powder the day of surgery. No jewelry (including any body piercings) or valuables the day of surgery, leave them at home. Please take a shower or bath the night before, or the morning of, surgery with an antibacterial soap. Wear comfortable, loose fitting clothing. - Jewelry must be removed prior to entering the operating room. Rings and piercings that are not removed may be cut off. - The hospital will not accept responsibility for valuables. - Please leave all valuables, including medications, at home the day of surgery. If you are going home after surgery, a licensed ambulette driver must drive you home. - NO public transportation without another adult. - We recommend that an adult stay with you for 24 hours following discharge. - We also recommend that you do not drive, make important decision, drink alcoholic beverages, or take any drugs that were not prescribed by your health care provider for at least 24 hours after your discharge time. Follow any additional instructions given to you from your surgeon. If you or anyone in your household have experienced Covid symptoms in the past week, please notify your surgeon or the nurse liaison at the phone number below for possible testing. Telephone instructions given to __Patient___and asked if any additional questions and then verbalized understanding. Patient advised to call surgeon office or pre surgery nurse liaison [phone] if any additional questions.
--- NOTE | 2022-01-12 07:51 | PM.IMHP ---
H&P: HPI History of Present Illness Date/Time: 01/12/22 07:51 Chief Complaint: Left vision loss left-sided giant cell arteritis temporal Narrative: planned surgical procedure Review of Systems Review of Systems: All systems reviewed & are unremarkable except as noted in HPI and below [facility] Past Medical History Medical History (Updated 01/06/22 @ 07:44 by Svetlana Brooke CMA) Abnormal finding of blood chemistry Acute recurrent maxillary sinusitis Anxiety Benign essential hypertension BMI 25.0-25.9,adult BMI 26.0-26.9,adult BMI 27.0-27.9,adult BMI 28.0-28.9,adult BMI 29.0-29.9,adult BMI 30.0-30.9,adult Bronchitis Change in bowel habit Colon cancer screening Congestion of right ear Cough Depression Diarrhea of presumed infectious origin Elevated LFTs Encounter for preventive health examination Encounter for routine adult health examination without abnormal findings Encounter for screening mammogram for malignant neoplasm of breast Exposure to COVID-19 virus Fever Follow up Frequent headaches GERD (gastroesophageal reflux disease) GERD (gastroesophageal reflux disease) Hx of solitary pulmonary nodule Hyperlipidemia Hypersomnolence Influenza vaccine needed Insomnia Lung nodule Migraines On shelter drug therapy Oral lichen planus Osteopenia Positional lightheadedness Post menopausal syndrome Postmenopausal Right flank pain Right shoulder pain RUQ abdominal pain Sinusitis Sore throat Statin intolerance Vitamin D deficiency Weight gain Surgical History Surgical History History of rhinoplasty History of tonsillectomy and adenoidectomy S/P scar revision [place] teeth removed Family History Family History Mother Family history of obesity Cerebrovascular accident Family history of heart disease in male family member before age 55 Hypertension Sibling Depression Cerebrovascular accident Family history of malignant neoplasm of breast in first degree relative Family history of heart disease in male family member before age 55 Father Malignant neoplasm of prostate Family history of heart disease in male family member before age 55 Heart disease Hypertension Grandparent Heart disease Hypertension Cerebrovascular accident Social History Social History Smoking packs per day: 0.5 Smoking cigarettes per day: 10.0 Years smoked: 30 Smoking pack-years: 15.00 Smoking status: Former smoker Tobacco type: cigarettes Second hand tobacco smoke exposure: No Smoking end date: 01/12/12 Additional smoking assessment comments: QUITE 8 YEARS AGO Alcohol intake: former Alcohol use details: SOBER FOR 9 YRS NOW Substance use: former Substance use type: marijuana and crack/cocaine Other substance usage details: CLEAN FOR 9 YEARS NOW 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 Gender identity (if verbalized by the patient): Female Spiritual care concerns: No Meds Home Medications and Allergies Home Medications Medication Instructions Recorded Confirmed Type multivitamin 1 tablet PO DAILY 04/14/19 01/11/22 History cetirizine 10 mg tablet (Zyrtec) 10 mg PO HS 04/07/20 01/11/22 History magnesium citrate 625 mg BYMOUTH BID #180 tabs 11/29/20 01/11/22 Rx calcium carbonate 600 mg-vitamin 2 tablet PO DAILY 12/21/20 01/11/22 History D3 20 mcg (800 unit) chewable tablet (Caltrate 600 plus D) cholecalciferol (vitamin D3) 25 1,000 unit PO DAILY 12/21/20 01/11/22 History mcg (1,000 unit) capsule tizanidine 4 mg tablet 2 mg PO TID PRN muscle spasticity 12/21/20 01/11/22 Rx #90 tabs trazodone 100 mg tablet 100 mg PO QHS PRN insomnia #30 tabs 05/02/21 01/11/22 Rx lactobacillus combination no.9 4 8,000 mmu cells PO DAILY 06/15/21 01/11/22 History billion cell capsule (Adult 50 Plus
--- NOTE | 2022-01-13 07:11 | WPDHPUPDATE1 ---
History and Physical Update Update Date/Time: 01/13/22 07:11 History and Physical has been reviewed, including an updated exam of the patient. There are NO changes in the patient's condition. Risks, benefits, and alternatives have been discussed and questions answered. Patient agrees to proceed with procedure.
[2022-01-13] MEDS: LACTATED RINGERS 1,000 ML 30 ML IV CONT (14:30)
[2022-01-13 14:38] VITALS: BP 139/71; PULSE 85; RESP 16; TEMP 36.3; O2SAT 98
--- NOTE | 2022-01-13 15:40 | WPDANESEPPF ---
Anes - Initial Pre Proc Eval Procedure: Operation Date: 01/13/22 14:45 Proposed Procedures p Left Temporal Artery Biopsy - Santiago Cedillo MD Date/Time: 01/13/22 15:40 Surgeon: Santiago Cedillo MD Pre Op Diagnosis: left temporal arteritis Patient Data Age: 61 Gender: F Height: 1.6 m Weight: 71.3 kg Last Vital Signs Temp 36.3 C L 01/13/22 14:38 Pulse 85 01/13/22 14:38 Resp 16 01/13/22 14:38 BP 139/71 01/13/22 14:38 Pulse Ox 98 01/13/22 14:38 O2 Del Method Room Air 01/13/22 14:38 Allergies Allergy/AdvReac Type Severity Reaction Status Date / Time amoxicillin Allergy Unknown Rash Verified 01/13/22 14:26 Penicillins Allergy Unknown Rash Verified 01/13/22 14:26 Sulfa (Sulfonamide Allergy Unknown Rash Verified 01/13/22 14:26 Antibiotics) levofloxacin AdvReac Unknown Other Verified 01/13/22 14:26 shellfish derived AdvReac Unknown Anaphylaxis Verified 01/13/22 14:26 Grimqqg-JLD-XiV Reductase AdvReac Unknown Muscle Pain Verified 01/13/22 14:26 Inhibitor [Kretqma-Fhb-Qta Reductase Inhibitor] Home Medications Medication Instructions Recorded Confirmed Type multivitamin 1 tablet PO DAILY 04/14/19 01/13/22 History cetirizine 10 mg tablet (Zyrtec) 10 mg PO HS 04/07/20 01/13/22 History magnesium citrate 625 mg BYMOUTH BID #180 tabs 11/29/20 01/13/22 Rx calcium carbonate 600 mg-vitamin 2 tablet PO DAILY 12/21/20 01/13/22 History D3 20 mcg (800 unit) chewable tablet (Caltrate 600 plus D) cholecalciferol (vitamin D3) 25 1,000 unit PO DAILY 12/21/20 01/13/22 History mcg (1,000 unit) capsule tizanidine 4 mg tablet 2 mg PO TID PRN muscle spasticity 12/21/20 01/11/22 Rx #90 tabs trazodone 100 mg tablet 100 mg PO QHS PRN insomnia #30 tabs 05/02/21 01/11/22 Rx lactobacillus combination no.9 4 8,000 mmu cells PO DAILY 06/15/21 01/13/22 History billion cell capsule (Adult 50 Plus Probiotic) omega-3 fatty acids 1,000 mg 2,000 mg PO BID 06/15/21 01/13/22 History capsule (Fish Oil Concentrate) duloxetine 30 mg capsule,delayed See Rx Instructions .Route 10/10/21 01/13/22 Rx release .COMPLEX #90 caps fluticasone furoate 27.5 2 spray intranasal DAILY 12/06/21 01/13/22 History mcg/actuation nasal spray,suspension (Flonase Sensimist) lysine 500 mg tablet (L-Lysine) 500 mg PO DAILY PRN Cold Sores 12/06/21 01/13/22 History omeprazole 20 mg capsule,delayed 20 mg PO DAILY PRN GERD #30 caps 12/06/21 01/13/22 Rx release promethazine 25 mg tablet 25 mg PO QID PRN Nausea 12/06/21 01/11/22 History lisinopril 10 mg tablet 10 mg PO DAILY #90 tabs 12/19/21 01/13/22 Rx topiramate 100 mg tablet 200 mg PO QHS #180 ea 01/03/22 01/13/22 Rx prednisone 20 mg tablet 40 mg PO DAILY #50 tabs 01/06/22 01/13/22 Rx azelastine 137 mcg (0.1 %) nasal See Rx Instructions .Route 01/11/22 Rx spray aerosol .COMPLEX #30 mL ezetimibe 10 mg tablet See Rx Instructions .Route 01/11/22 Rx .COMPLEX #90 tabs pravastatin 40 mg tablet See Rx Instructions .Route 01/11/22 Rx .COMPLEX #90 tabs Patient hx anesthesia problems: none Family hx anesthesia problems: none Results Review: All pre-operative results and documents have been reviewed as part of the pre-operative evaluation. [facility] Past Medical History Medical History Abnormal finding of blood chemistry Acute recurrent maxillary sinusitis Anxiety Benign essential hypertension BMI 25.0-25.9,adult BMI 26.0-26.9,adult BMI 27.0-27.9,adult BMI 28.0-28.9,adult BMI 29.0-29.9,adult BMI 30.0-30.9,adult Bronchitis Change in bowel habit Colon cancer screening Congestion of right ear Cough Depression Diarrhea of presumed infectious origin Elevated LFTs Encounter for preventive health examination Encounter for routine adult health examination without abnormal findings Encounter for screening mammogram for malignant neoplasm of breast Exposure to COVID-19 virus Fever Follow up
[2022-01-13] MEDS: ceFAZolin 2 GM/D5W 50 ML 2 GM/50 ML BAG IVPB (15:57)
[2022-01-13] MEDS: LIDO 1%/EPINEPHRINE 1:100,000 10 ML VIAL INFILTRATE (16:43)
[2022-01-13] MEDS: BACITRACIN OINTMENT 15 GM TUBE 1 APPLIC TOPICAL (16:46)
[2022-01-13 17:00] VITALS: BP 161/81; PULSE 105; RESP 14; TEMP 37.1; O2SAT 100
--- NOTE | 2022-01-13 17:12 | W.PM.PROC2 ---
Procedure Note - Detailed Date of Procedure 01/13/22 Pre-op Diagnosis left temporal arteritis Post-op Diagnosis Same Procedure Performed Biopsy of left superficial temporal artery Surgeon Santiago Cedillo MD Anesthesia General Indications see above Findings superficial artery biopsies facial nerve left intact odd of operative field Description of Procedure patient identified consent verified. Patient operating room. Left side was marked. General anesthesia induced LMA secured. Patient prepped and draped following identification of safe zone for temporal artery biopsy. 2.5 cm from helical root and a vertical line drawn through the tragus 4 cm from this line at the top of the auricle. Patient prepped and draped. Second time-out performed. The superficial temporal artery was palpated and a if 3 cm line was drawn over it. Fifteen blade utilized incised through the epidermis and dermis following injection of 0.5 cc of 1% lidocaine with 1 100,000 parts epinephrine. The superficial parietal fascia was identify the artery was visible deep to it. Then several mm lateral to the artery posteriorly the fascia was incised the artery was dissected free perforating superficial temporal venous vessels were bipolar when 3 cm of the artery was freed from the deep temporal fascia it was suture ligated on either end on both ends with the 3 0 interrupted sorry 3 0 silk suture. Artery was then clipped with scissors sent for pathologic analysis. There was no bleeding. The wound was copiously irrigated with sterile normal saline. The deep layers closed with 4 0 interrupted Vicryl sutures. The skin was closed with running 5 0 fast gut suture. Antibiotic ointment was applied. Blood loss was essentially 0. I performed all dictated portions of the procedure. There no complications. Care the patient given anesthesia. Patient taken to PACU. Estimated Blood Loss 1 Drains No Packing No Pathology Yes Complications No immediate complications Condition Stable Disposition PACU
[2022-01-13 17:15] VITALS: BP 152/84; PULSE 91; RESP 14; O2SAT 97
[2022-01-13 17:30] VITALS: BP 157/83; PULSE 84; RESP 11; O2SAT 100
[2022-01-13 17:43] VITALS: BP 162/82; PULSE 81; RESP 16
[2022-01-13 18:05] VITALS: BP 171/88; PULSE 84; RESP 16
== END 2022-01-13 18:20 | disposition home or self-care (01) ==
PROVIDERS: PCP Internal Medicine; Visit Provider Otolaryngology
PROC: (CPT 37609; principal; 2022-01-13 14:45)
DX: I77.89 Other specified disorders of arteries and arterioles (principal); F41.9 Anxiety disorder, unspecified; R51.9 Headache, unspecified; I10 Essential (primary) hypertension; F32.A Depression, unspecified; R79.89 Other specified abnormal findings of blood chemistry; K21.9 Gastro-esophageal reflux disease without esophagitis; E78.5 Hyperlipidemia, unspecified; G47.10 Hypersomnia, unspecified; M19.90 Unspecified osteoarthritis, unspecified site; L43.9 Lichen planus, unspecified; E55.9 Vitamin D deficiency, unspecified; G47.00 Insomnia, unspecified; Z87.891 Personal history of nicotine dependence; F12.90 Cannabis use, unspecified, uncomplicated
CPT/HCPCS: 37609; 88305; 88313; 93005; A9270; J0690; J1100; J2250; J2405; J2704; J3010; J7120

== ENCOUNTER 2022-10-25 13:29 | Outpatient (CLI) | payer MEDICARE, SELFPAY ==
--- NOTE | ~2022-10-25 | CT_ITS ---
CT Scan of the Chest without Contrast: Clinical Indication: Lung cancer screening, 6 mm pulmonary nodule Technique: Contiguous sections were acquired throughout the chest without intravenous contrast. Dose reduction technique was used on this scan by utilizing automated exposure control and iterative recon struction technique. The dose-length product (DLP) was 96.32 mGy-cm. COMPARISON: 11/29/2021 and 10/29/2019 Findings: There is no evidence of any significant mediastinal, hilar or axillary lymphadenopathy. The mediastin al soft tissues appear normal. There is no evidence of pleural or pericardial effusion. Stable 4 mm groundglass nodule noted at the right lung apex (axial image 22). Stable 7 mm right lower lobe pulmonary nodule (axial image 90). Images through the upper abdomen reveal no abnormalities. Impression: Lung RADS 2: Benign appearance. 12 follow-up month screening CT advised. Reviewed, dictated and finalized at [facility]. Impression: Lung RADS 2: Benign appearance. 12 follow-up month screening CT advised.
== END 2022-10-25 13:30 | disposition home or self-care (01) ==
PROVIDERS: PCP Internal Medicine; Visit Provider Internal Medicine
DX: Z12.2 Encounter for screening for malignant neoplasm of respiratory organs (principal); R91.1 Solitary pulmonary nodule; F17.210 Nicotine dependence, cigarettes, uncomplicated; J98.4 Other disorders of lung
CPT/HCPCS: 71271

== ENCOUNTER 2022-12-15 09:48 | Outpatient (CLI) | payer MEDICARE, SELFPAY ==
[2022-12-15 10:25] LABS: Complement C3 102 mg/dL (88-165)
== END 2022-12-15 09:49 | disposition home or self-care (01) ==
PROVIDERS: PCP Internal Medicine; Visit Provider Internal Medicine
DX: M19.90 Unspecified osteoarthritis, unspecified site (principal)
CPT/HCPCS: 36415; 86160; 86225

== ENCOUNTER 2023-01-24 13:17 | Outpatient (CLI) | payer MEDICARE, SELFPAY ==
--- NOTE | ~2023-01-24 | DEXA_ITS ---
Bone Density Report Name: GHADA COX Age: 62 Sex: Female Ethnicity: White Date of : 1960 Indication: osteopenia; height loss; prior fracture; postmenopausal Referring Provider: JERMAN RODRIGUEZ Study: Bone densitometry was performed. Exam Date: January 24, 2023 Accession number: [id number] Bone Density: Region BMD T-score Z-score Classification AP Spine(L1-L4) 0.827 -2.0 -0.3 Osteopenia Femoral Neck (Left) 0.629 -2.0 -0.5 Osteopenia Total Hip (Left) 0.794 -1.2 -0.1 Osteopenia Femoral Neck (Right) 0.670 -1.6 -0.2 Osteopenia Total Hip (Right) 0.777 -1.4 -0.2 Osteopenia Total Hip Mean 0.786 -1.3 -0.2 Osteopenia World Health Organization criteria for BMD impression classify patients as: Normal (T-score at or above -1.0), Osteopenia (T-score between -1.0 and -2.5), or Osteoporosis (T-score at or below -2.5). 10-year Fracture Risk(1): Major Osteoporotic Fracture 17% Hip Fracture 2.4% Reported Risk Factors: [place] (), Neck BMD=0.629, BMI=25.0, previous fracture (1) FRAX(R) Version 3.08. Fracture probability calculated for an untreated patient. Fracture probability may be lower if the patient has received treatment. Previous Exams: Region Exam Age BMD T-score BMD Change BMD Change Date g/cm2 vs Baseline vs Previous AP Spine (L1-L4) 01/24/2023 62 0.827 -2.0 -0.040 (-4.6%) -0.040 (-4.6%) 10/26/2020 60 0.867 -1.6 Total Hip(Left) 01/24/2023 62 0.794 -1.2 -0.034 (-4.2%) -0.034 (-4.2%) 10/26/2020 60 0.829 -0.9 Total Hip(Right) 01/24/2023 62 0.777 -1.4 -0.152 (-16.3% -0.152 (-16.3% 10/26/2020 60 0.929 -0.1 *Denotes significance at 95% confidence level, LSC for AP Spine = 0.022 g/cm2, LSC for Total Hip = 0.027 g/cm2 Clinical Information Provided by Patient: Has had a low trauma fracture Has used the following medications: Vitamin D, Calcium Patient maximum height was 64.5 Menopause Age: 51 No regular weight bearing exercise Drinks caffeinated beverages Onset of menses at age 14 Number of children 0 Impression: The patient has low bone mass, based on the Total Spine T-score. The patient has an estimated ten-year risk of hip fracture of 2.4% and an estimated ten-year risk of major fracture of 17%, based on the WHO FRAX algorithm. The patient has risk factors, including: previous fracture. The BMD for the AP Spine (L1-L4) decreased, changing by -4.6% since the last DXA exam. The BMD for the Total H
== END 2023-01-24 13:18 | disposition home or self-care (01) ==
LOC: ANHIMG 13:19
PROVIDERS: PCP Internal Medicine; Visit Provider Internal Medicine
DX: Z78.0 Asymptomatic menopausal state (principal); M85.89 Other specified disorders of bone density and structure, multiple sites
CPT/HCPCS: 77080

== ENCOUNTER 2023-09-27 16:25 | Outpatient (CLI) | payer MEDICARE, SELFPAY ==
--- NOTE | ~2023-09-27 | XR_ITS ---
EXAMINATION: XR lumbar spine 2-3V DATE: 09/27/2023 16:51 INDICATION: Midline low back pain. TECHNIQUE: 3 views of lumbar spine were obtained. COMPARISON: None. FINDINGS: There is 32 degrees levoscoliosis of lumbar spine. Vertebral body heights are normal. There is moderately decreased disc height at L1-L2, severely decreased disc height at L2-L3 and L3-L4, mod erately decreased disc height at L4-L5, and severely decreased disc height at L5-S1. There is multile ind[place] severe facet joint osteoarthritis. Surgical clips in the right upper quadrant are likely from cho lecystectomy. IMPRESSION: 1. Severe lumbar spondylosis. 2. Lumbar levoscoliosis. Reviewed, dictated and finalized at location A.
--- NOTE | ~2023-09-27 | XR_ITS ---
EXAMINATION: XR hip RT min 2V DATE: 09/27/2023 16:51 INDICATION: Arthralgia. TECHNIQUE: 2 views of right hip were obtained. COMPARISON: None. FINDINGS: Bone alignment is normal. No fracture. There is mild right hip osteoarthritis. IMPRESSION: 1. Mild right hip osteoarthritis. Reviewed, dictated and finalized at location A.
--- NOTE | ~2023-09-27 | XR_ITS ---
EXAMINATION: XR hip LT min 2V DATE: 09/27/2023 16:51 INDICATION: Arthralgia. TECHNIQUE: 2 views of left hip were obtained. COMPARISON: None. FINDINGS: There is lumbar levoscoliosis. No fracture. There is mild left hip osteoarthritis. IMPRESSION: 1. Mild left hip osteoarthritis. Reviewed, dictated and finalized at location A.
== END 2023-09-27 16:26 | disposition home or self-care (01) ==
PROVIDERS: PCP Internal Medicine; Visit Provider Internal Medicine
DX: M43.06 Spondylolysis, lumbar region (principal); M41.86 Other forms of scoliosis, lumbar region; M16.0 Bilateral primary osteoarthritis of hip; G89.29 Other chronic pain
CPT/HCPCS: 72100; 73502

== ENCOUNTER 2023-11-05 09:37 | Outpatient (CLI) | payer MEDICARE, SELFPAY ==
--- NOTE | ~2023-11-05 | CT_ITS ---
EXAMINATION:CT lung screening DATE: 11/05/2023 10:35 INDICATION: Personal history of nicotine dependence. Smoker who quit 4 years ago with 30 pack year hi story. TECHNIQUE: Computed tomography (CT) of the chest was performed without intravenous contrast. Automate d exposure control and iterative reconstruction technique were employed. The dose-length product (DLP ) was 75.51 mGy-cm. COMPARISON: Chest CT 10/25/22 FINDINGS: A calcified right lung nodule is consistent with old granulomatous disease. There is a stab le 4 mm groundglass nodule in right upper lobe. There is mild atelectasis bilaterally. There are a fe w nodules in the lungs measuring up to 2 mm. No pleural effusion. The heart size is normal. No perica rdial effusion. There is a small sliding hiatal hernia. There are changes of cholecystectomy. There i s severe cervical spondylosis and mild thoracic spondylosis. Thoracolumbar dextroscoliosis is noted. IMPRESSION: 1. Lung-RADS category 2: Benign appearance or behavior. Continue annual screening with noncontrast lo w-dose chest CT in 12 months. Reviewed, dictated and finalized at location A. IMPRESSION: 1. Lung-RADS category 2: Benign appearance or behavior. Continue annual screeni ng with noncontrast low-dose chest CT in 12 months.
== END 2023-11-05 09:38 | disposition home or self-care (01) ==
LOC: ANHIMG 09:39
PROVIDERS: PCP Internal Medicine; Visit Provider Internal Medicine
DX: Z12.2 Encounter for screening for malignant neoplasm of respiratory organs (principal); R91.1 Solitary pulmonary nodule; Z87.891 Personal history of nicotine dependence
CPT/HCPCS: 71271

== ENCOUNTER 2024-09-09 09:38 | Outpatient (CLI) | payer MEDICARE, SELFPAY ==
[2024-09-09 10:14] LABS: Basophils Percent Auto 0.3 % (0.2-1.2); Eosinophils Absolute Auto 0.1 K/mm3 (0-0.3); Eosinophils Percent Auto 1.6 % (0-4.4); Hematocrit 40.3 % (37.0-47.0); Hemoglobin 12.8 g/dL (12.0-15.0); Immature Granulocyte Absolute 0.02 K/mm3 (0.00-0.031); Immature Granulocyte Percent A 0.3 % (0-0.5); Lymphocytes Absolute Auto 2.48 K/mm3 (0.9-3.2); Lymphocytes Percent Auto 39.3 % (18.3-44.2); Mean Corpuscular HGB Conc 31.8 g/dl (32-36); Mean Corpuscular Hemoglobin 29.3 pg (26-34); Mean Corpuscular Volume 92.2 fl (80-100); Monocytes Absolute Auto 0.3 K/mm3 (0.1-0.6); Monocytes Percent Auto 4.3 % (2.6-8.5); Neutrophils Absolute Auto 3.4 K/mm3 (1.3-6.7); Neutrophils Percent Auto 54.2 % (45.5-73.1); Platelet Count Result 295 k/mm3 (150-375); Red Blood Count 4.37 M/mm3 (4.2-5.4); Red Cell Distribution Width 12.9 % (11.5-14.5); White Blood Count 6.3 K/mm3 (4.5-10.0)
[2024-09-09 10:16] LABS: Add Urine Microscopic? NO; Appearance Urine Clear (Clear); Bilirubin Urine Negative (Negative); Blood Urine Negative (Negative); Color Urine Yellow (Yellow); Glucose Urine UA Negative (Negative); Ketones Urine Negative (Negative); Leukocyte Esterase Ur Negative LEU/UL (Negative); Nitrate Urine Negative (Negative); Protein Urine Negative (Negative); Specific Grav Ur 1.021 (1.001-1.035); Urobilinogen Urine 0.2 mg/dL (<2.0); pH Urine 5.5 (5.0-9.0)
--- OUTSIDE RECORDS SUMMARY | 2024-09-09 10:16 | XMS_ITS | Encounter Summary ---
Author Organization [facility] Address 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
--- OUTSIDE RECORDS SUMMARY | 2024-09-09 10:16 | XMS_ITS | Encounter Summary ---
Author Organization [facility] Address 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
--- OUTSIDE RECORDS SUMMARY | 2024-09-09 10:16 | XMS_ITS | Clinical Summary ---
Author Organization [facility] Address [address] [place] [address] Care Team Providers Care Core Java Engineer Name Role Phone Yoel Silva MD Primary Care Provider [phone] Anand Bailey MD Unavailable [phone] Allergies Active Allergy Reactions Criticality Noted Date Comments Levofloxacin Penicillins Shellfish Containing Products Sulfa (Sulfonamide Antibiotics) Medications ezetimibe (ZETIA) 10 mg tablet 12/19/2021 Active pravastatin (PRAVACHOL) 40 mg tablet 12/19/2021 Active lisinopriL (PRINIVIL,ZESTR IL) 10 mg tablet 12/19/[address] (CYMBALTA) 30 mg capsule 02/10/2014 Active topiramate (TOPAMAX) 100 mg tablet Take 1 tablet (100 mg total) by mouth 2 (two) times a day Active alendronate (FOSAMAX) 70 mg tablet 09/10/2023 Active cetirizine (ZyrTEC) 10 mg tablet Take by mouth Active diphenhydrAMINE 25 mg capsule Take 1 tablet/capsul e (25 mg total) by mouth every 6 (six) hours as needed Active magnesium citrate 125 mg capsule Take by mouth Active omega-3 fatty acids-fish oil 300-1,000 mg capsule Take 2 capsules (2 g total) by mouth daily Active calcium carbonate-vitam in D3 1,500 mg (600 mg elemental)-800 unit tablet,chewable Take by mouth Active Active Problems Problem Noted Date Diagnosed Date Arthralgia 09/19/2023 Overview (10/03/2023): 09/2023 labs: AVISE GILBERT by gabriela only, RF IgA equiv, Anti-CL IgM 10 (weak+), C3 108, C4 29, anti-dsDNA+ 09/2023 XR: -Rt hip: mild osteoarthritis -Lt hip: mild osteoarthritis -Lspine: Moderately decreased disc height at L1-L2, severely decreased disc height at L2-L3 and L3-L4, moderately decreased height at L4-L5 and severely decreased disc height at L5-S1. Multilevel severe facet joint osteoarthritis. Assessment & Plan (10/10/2023 1:41 PM CDT): Ms. Lilly is a 63yo female with PMH of HTN, depression, JOSEY (prev on CPAP), HLD, hx of eczema, anxiety, anemia and migraines who presented at last visit for further evaluation of her recent SLE diagnosis. Symptoms began with OS visual changes and temporal headaches concerning for CGA. She was placed on steroids, followed up with gravure press operator, underwent temporal artery biopsy that was negative and steroids were stopped. She then began having 1-2 hours of AM joint stiffness of the lower extremities as well as lateral hip pain and was recommended to follow up with rheumatology. Saw Dr. Raman with labs (+dsDNA, neg GILBERT/RF/CCP) who offered plaquenil for mild SLE, which she did not start due to concern for side effects and confusion over diagnosis. Denies any small joint involvement or joint swelling, photosensitive rashes, recurrent oral/nasal ulcers, pleurisy or recurrent fevers/infections. No contributory FH. Recent AVISE autoantibody testing was positive for GILBERT by gabriela only and weakly positive for anti-cardiolipin IgM 10. Radiographic imaging of the bilateral hips demonstrated mild osteoarthritis with an L-spine XR showing severe multilevel facet joint osteoarthritis with varying degrees of disc height loss between all 5 vertebral bodies. At this time the work up fails to confirm the presence of an underlying connective tissue disease and therefore she does not warrant treatment with Plaquenil. I would again encourage physical therapy to address her symptoms. She is welcome to return in the future for re-evaluation should she develop any concerning symptoms. Seen with Dr. Bailey. Assessment & Plan (09/19/2023 12:21 PM CDT): Ms. Lilly is a 63yo female with PMH of HTN, depression, JOSEY (prev on CPAP), HLD, hx of eczema, anxiety, anemia and migraines who presents for further evaluation of her recent SLE diagnosis. Symptoms began with OS visual changes and temporal headaches concerning for CGA. She was placed on steroids, followed up with gravure press operator, underwent temporal artery biopsy that was negative and steroids were stopped. She then began having 1-2 hours of AM joint stiffness of the lower extremities as well as lateral hip pain and was recommended to follow up with rheumatology. Saw Dr. Raman with labs (+dsDNA, neg GILBERT/RF/CCP) who offered plaquenil for mild SLE, which she did not start due to concern for side effects and confusion over diagnosis. Denies any small joint involvement or joint swelling, photosensitive rashes, recurrent oral/nasal ulcers, pleurisy or recurrent fevers/infections. No contributory FH. No synovitis on exam with ttp of bilateral greater trochanters. Based on her reported symptoms she does not likely have a connective tissue disease. Suspect she may have trochanteric bursitis and recommended PT for evaluation/treatment (referral provided). Will recheck serologies today to include anti-Sm/c1q/SSA/SSB/GILBERT, etc as well as basic labs. Will also obtain hip and Lspine XRs for further evaluation. To remain off plaquenil. Return in [address] Bailey. 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 Surgical History Surgery Date Site/Laterality Comments MT TONSILLECTOMY PRIMARY/SEC ONDARY <AGE 12 Tonsillectomy - (Added by TW Conv) SINUS SURGERY Sinus Surgery - (Added by TW Conv) MT RADIAL KERATOTOMY Cornea Radial Keratotomy - (Added by TW Conv) Medical History Medical History Date Comments Personal history of alcoholism (HCC) Alcoholism - resolved in the past 5 years (Added by TW Conv) Personal history of other di seases of the digestive system History of esophageal reflux - (Added by TW Conv) Enterocolitis due to Clostri dium difficile Clostridium difficile coliti s - (Added by TW Conv) Family History Medical History Relation Name Comments Alcohol abuse Other Alcoholism - M GF, (M)aunt and brother (Added by TW Conv) Migraines Other Common Migraine (Without Aura) - PGM, parents and sister (Added by TW Conv) Relation Name Status Comments Other Social History Tobacco Use Types Packs/Day Years Used Date Smoking Tobacco: Never Assessed Comments Unknown Sex and Gender Information Value Date Recorded Sex Assigned at Not on file Legal Sex Female 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 Gender Identity Not on file Sexual Orientation Not on file Obstetrics History Last Filed Vital Signs Vital Sign Reading Time Taken Comments Blood Pressure 116/64 10/10/2023 1:22 PM CDT Pulse 79 10/10/2023 1:22 PM CDT Temperature - - Respiratory Rate - - Oxygen Saturation 98% 10/10/2023 1:22 PM CDT Inhaled Oxygen Concentration - - Weight 63.5 kg (140 lb) 10/10/2023 1:22 PM CDT Height 160 cm (5' 3 ) 10/10/2023 1:22 PM CDT Body Mass Index 24.8 10/10/2023 1:22 PM CDT Plan of Treatment Health Maintenance Due Date Last Done Comments Cervical Cancer Screening 1959 Colon Cancer Screening-Colonoscopy 1959 Depression Screening 1959 Fall Risk Assessment 1959 Hepatitis C Screening 1959 Osteoporosis Screening-Bone Density Scan 1959 Pneumococcal vaccine 65+ (1 of 1 - PCV) 2009 Zoster Vaccine (2 of 2) 04/17/2022 02/20/2022 Covid-19 Vaccine (3 - 2023-2 5 season) 2024 06/24/2020, 05/27/2020 Influenza Vaccine (#1) 2024 3, 02/20/2022, 04/05/2018, Additional history exists Breast Cancer Screening-Mammogram 02/01/2024 01/31/2023, 01/31/2023, 01/24/2022, Additional history exists Well Visit 65+ 2024 DTaP/Tdap/Td Vaccine (2 - Td or Tdap) 09/01/2024 09/01/2014 Hepatitis B Screening Completed 08/15/2002 , 02/04/2002, 01/01/2002 Insurance [employer] HMO Care Teams Core Java Engineer Relationship Specialty Start Date End Date Yoel Silva MD [address] [place] [address] PCP - General Internal Medicine 01/20/22 Anand Bailey MD [address] [place] [address] Consulting Physician Rheumatology 08/17/23
--- OUTSIDE RECORDS SUMMARY | 2024-09-09 10:16 | XMS_ITS | Encounter Summary ---
Author Organization [facility] Address [address] [place] [address] Care Team Providers Care Client Support Consultant Name Role Phone Yoel Silva MD Primary Care Provider [phone] Reason for Visit * Reason Onset Date Comments Question 02/21/2022 Encounter Details Date Type Department Care Team (Late st Contact Info) Description 02/21/2022 Telephone [facility] [address] [place] [address] Claudia Mars MD [address] [place] [address] Question Social History Tobacco Use Types Packs/Day Years Used Date Smoking Tobacco: Former Cigarettes 0.5 10 0 10/2001 - 10/2011 Smokeless Tobacco: Never Alcohol Use Standard Drinks/Week Comments Yes 0 (1 standard drink = 0.6 oz pur e alcohol) moderately Comments No Sex and Gender Information Value Date Recorded Sex Assigned at Female 11/30/2021 10:31 AM CDT Legal Sex 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 Pt called back # is [phone] documented in this encounter Plan of Treatment Not on file documented as of this encounter Visit Diagnoses Not on filedocumented in this encounter Care Teams Client Support Consultant Relationship Specialty Start Date End Date Yoel Silva MD [address] [facility] [address] [facility] [address] [place] [address] PCP - General Internal Medicine 02/09/22 documented as of this encounter
--- OUTSIDE RECORDS SUMMARY | 2024-09-09 10:16 | XMS_ITS | Clinical Summary ---
Author Organization [facility] Address [address] [place] [address] Care Team Providers Care Director Aeronautics Commission Name Role Phone Yoel Silva MD Primary Care Provider [phone] Source Comments [facility],non-owned Affiliates and Associated Physician Practices is amultiple site organization consisting of ambulatory clinics and hospital sitesin [place], [place], [place] and [place]. This disclosure is being madepursuant to the Care Everywhere program and may not contain all information available regarding this patient. Last updated 18.[facility] Allergies Active Allergy Reactions Criticality Noted Date Comments Levaquin 07/29/2009 Penicillins 07/29/2009 Shellfish 07/29/2009 Sulfa Drugs 07/29/2009 Medications * Be aware that medications may not be up to date on this document. Alwaysverify current medications with the patient. topiramate (TOPAMAX) 100 MG tablet Take 100 mg by mouth 2 times daily. Active LYBREL 90-20 MCG PO TABS Take 1 Tab by mouth daily. Active Magnesium 250 MG TABS Take 125 mg by mouth daily. Active aspirin-acetam inophen-caffei ne (EXCEDRIN) 250-250-65 MG tablet Take 1 Tab by mouth every 4 hours as needed for Headache. Active promethazine (PHENERGAN) 25 MG tablet Take 25 mg by mouth every 6 hours as needed for Nausea/Vomiting. Active acetaminophen (TYLENOL) 500 MG tablet Take 500 mg by mouth every 4 hours as needed for Fever and Pain. Maximum allowable Acetaminophen amount = 4 Grams / 24 hours. Active lisinopril (Prinivil; Zestril) 10 MG tablet 2 Active pravastatin (Pravachol) 40 MG tablet 2 Active ezetimibe (Zetia) 10 MG tablet 2 Active DULoxetine (Cymbalta) 30 MG capsule 2 Active diphenhydrAMIN E HCl, Sleep, 25 MG Take 25 mg by mouth every 6 hours as needed Active cetirizine (ZyrTEC) 10 MG tablet Active Fluticasone Propionate (FLONASE ALLERGY RELIEF NA) Active Multiple Vitamins-Food And Beverage Lead als (MULTIVITAMIN & MINERAL PO) Active [place]-3 Fatty Acids (fish oil) 1000 MG capsule Take by mouth 4 times daily Active Magnesium Citrate 125 MG CAPS Active Cholecalcifero l (D3-1000 PO) Activ e Calcium Carb-Cholecalc iferol (CALTRATE 600+D3 PO) Active ibuprofen (Advil;Motrin) 40 MG/ML suspension Active polyethylene glycol 3350 (Miralax) 17 GM/SCOOP powder Take 17 g by mouth once daily Active Fexofenadine HCl (MUCINEX ALLERGY PO) Active traZODone (Desyrel) 100 MG tablet Active Bacillus Coagulans-Inul in (PROBIOTIC-PRE BIOTIC PO) Active aspirin buffered 325 MG tablet 0 Active predniSONE (Deltasone) 10 MG tablet Active tiZANidine (Zanaflex) 4 MG tablet TAKE 1/2 TABLET BY MOUTH THREE TIMES DAILY NEEDED FOR MUSCLE SPASMS 2 Active albuterol-ipra tropium (Duo-Neb) 0.5-2.5 (3) MG/3ML nebulizer solution USE 1 VIAL VIA NEBULIZER THREE TIMES DAILY 2 Active albuterol HFA (Proventil; Ventolin; Proair) 108 (90 Base) MCG/ACT inhaler INHALE 1 PUFF BY MOUTH EVERY 4 HOURS NEEDED FOR SHORTNESS OF BREATH OR WHEEZING 2 Active cefUROXime (Ceftin) 500 MG tablet Take 1 (one) tablet by mouth every 12 hours 3 Active Active Problems Problem Noted Date Diagnosed Date Headache 11/11/2009 Family History Medical History Relation Name Comments Cancer - Breast Maternal Aunt Cancer - Breast Other 2 great aunts Relation Name Status Comments Maternal Aunt Other 2 great aunts Social History Tobacco Use Types Packs/Day Years Used Date Smoking Tobacco: Former Cigarettes 0.5 10 0 10/2001 - 10/2011 Smokeless Tobacco: Never Alcohol Use Standard Drinks/Week Comments Yes 0 (1 standard drink = 0.6 oz pur e alcohol) moderately Comments No Sex and Gender Information Value Date Recorded Sex Assigned at Female 11/30/2021 10:31 AM CDT 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 Gender Identity Female 11/30/2021 10:31 AM CDT Sexual Orientation Straight 11/30/2021 10 :31 AM CDT Last Filed Vital Signs Vital Sign Reading Time Taken Comments Blood Pressure 124/64 08/07/2022 10:08 AM CDT Pulse 81 08/07/2022 10:08 AM CDT Temperature 36.2 C (97.1 F) 08/07/2022 10:08 AM CDT Respiratory Rate 16 07/29/2009 7:10 PM CDT Oxygen Saturation 98% 08/07/2022 10:08 AM CDT Inhaled Oxygen Concentration - - Weight 66.2 kg (146 lb) 02/28/2024 11:19 AM CDT Height 160 cm (5' 3 ) 02/28/2024 11:19 AM CDT Body Mass Index 25.86 02/28/2024 11:19 AM CDT Plan of Treatment Health Maintenance Due Date Last Done Comments BONE DENSITY TESTING 1959 COLOGUARD (AGES 45-75) - COLON CA SCREENING 1959 COLON MONITORING 1959 COLONOSCOPY - COLON CA SCREENING 1959 CT COLONOGRAPHY - COLON CA SCREENING 1959 Colorectal Cancer Screening 1959 FIT - COLON CA SCREENING 1959 FLEX SIG - COLON CA SCREENING 1959 HIV SCREENING 1974 HEPATITIS C SCREENING 04/09/1977 DTAP/TDAP/TD VACCINES (1 - Tdap) 1978 PNEUMOCOCCAL VACCINE 50+ (1 of 1 - PCV) 2009 ZOSTER VACCINE (1 of 2) 2009 PAP SMEAR 03/08/2019 03/08/2016 SCREENING FOR DIABETES 01/13/2022 COVID-19 VACCINE ( - season) 2024 DEPRESSION SCREENING 05/07/2024 MEDICARE AWV CALENDAR YEAR 2024 INFLUENZA VACCINE (Season Ended) 2025 02/08/2022 MAMMOGRAM 02/27/2026 02/28/2024, 01/06, 01/24/2022, Additional history exists Respiratory Syncytial Virus (RSV) Vaccine Pt: or over 60 yrs (1 - 1-dose 75+ series) 2034 HEPATITIS B VACCINE Aged Out No longe r eligible based on patient's age to complete this topic HIB VACCINE Aged Out No longer eligi ble based on patient's age to complete this topic HPV VACCINE Aged Out No longer eligi ble based on patient's age to complete this topic MENINGOCOCCAL (Group B) VACCINE SHARED DECISION-MAKING Aged Out No longer eligible based on patient's age to complete this topic MENINGOCOCCAL GROUPS A/C/Y/W VACCINE Aged Out No longer eligible based on patient's age to complete this topic Procedures Procedure Name Priority Date/Time Associated Diagnosis Comments MAMMO BILAT SCREENING W JOE Routine 02/28/2024 11:35 AM CDT Visit for screening mammogram from Last 3 Months or Most Recently Relevant to Health Maintenance Results * Mammo Bilat Screening W Joe (02/28/2024 11:35 AM CDT) Anatomical Region Laterality Modality Breast Bilateral Mammography 02/28/2024 1:46 PM CDT Impressions 02/28/2024 1:47 PM CDT IMPRESSION: No mammographic evidence of malignancy in either breast. ASSESSMENT: BIRADS Category 1: Negative mammogram. RECOMMENDATION: Bilateral screening mammogram in one year. Thank you for allowing us to participate in the care of your patient. [facility] utilizes [employer] as a reminder system to notify patients of their next recommended mammogram. > Interpreting Provider: Liliam Lind MD on 02/28/2024 1:47 PM Narrative 02/28/2024 1:47 PM CDT EXAMINATION: Digital screening mammogram. Low-dose full-field digital breast tomosynthesis examination was performed with synthetic 2D images. Computer assisted detection was utilized. DATE: 02/28/2024 11:35 AM PRIOR: 01/31/2023 and prior mammograms dating back to 2020. BREAST PARENCHYMAL DENSITY: The breasts are heterogeneously dense, which may obscure small masses. FINDINGS: No suspicious masses, areas of architectural distortion or microcalcifications are evident on synthetic 2D mammogram or tomosynthesis images. There has been no significant interval change since the prior examination. Yoel Silva MD MAMMO ORDERABLES Final Result from Last 3 Months or Most Recently Relevant to Health Maintenance Insurance [employer] Care Teams Director Aeronautics Commission Relationship Specialty Start Date End Date Yoel Silva MD [address] [place] [address] PCP - General Internal Medicine 02/09/22
--- OUTSIDE RECORDS SUMMARY | 2024-09-09 10:16 | XMS_ITS | Encounter Summary ---
Author Organization [facility] Address 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
--- OUTSIDE RECORDS SUMMARY | 2024-09-09 10:16 | XMS_ITS | Encounter Summary ---
Author Organization [facility] Address 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
--- OUTSIDE RECORDS SUMMARY | 2024-09-09 10:16 | XMS_ITS | Encounter Summary ---
Author Organization [facility] Address [address] [place] [address] Care Team Providers Care Striker Off Name Role Phone Unavailable Primary Care Provider Unavailabl e Encounter Details Date Type Department Care Team (Late st Contact Info) Description 06/29/2000 Outpatient Historical [facility] Denise Trent MD [address] [place], [place] [id number] Social History Tobacco Use Types Packs/Day Years Used Date Smoking Tobacco: Never Assessed Comments Unknown Sex and Gender Information Value Date Recorded Sex Assigned at Not on file Legal Sex Female 4:23 AM RETAIL ADVISOR Gender Identity Not on file Sexual Orientation Not on file documented as of this encounter Plan of Treatment Not on file documented as of this encounter Visit Diagnoses Not on filedocumented in this encounter
--- OUTSIDE RECORDS SUMMARY | 2024-09-09 10:16 | XMS_ITS | Encounter Summary ---
Author Organization [facility] Address [address] [place] [address] Care Team Providers Care Transplant Worker Name Role Phone Unavailable Primary Care Provider Unavailabl e Encounter Details Date Type Department Care Team (Late st Contact Info) Description 08/16/[address] 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
--- OUTSIDE RECORDS SUMMARY | 2024-09-09 10:16 | XMS_ITS | Clinical Summary ---
Author Organization [facility] Address [address] [place] [address] Care Team Providers Care Centrifugal Casting Machine Tender Name Role Phone Yoel Silva MD Primary Care Provider [phone] Social History Tobacco Use Types Packs/Day Years Used Date Smoking Tobacco: Never Assessed Comments Unknown Sex and Gender Information Value Date Recorded Sex Assigned at Not on file Legal Sex Female 5:26 PM CDT Gender Identity Not on file Sexual Orientation Not on file Plan of Treatment Health Maintenance Due Date Last Done Comments Colorectal Cancer Screening Colonoscopy (10 Years) 1959 Hepatitis C 1977 Mammogram Screening 1999 Pneumococcal Vaccine: 50+ Years (1 of 1 - PCV) 2009 Zoster Vaccines (1 of 2) 2009 COVID-19 Vaccine (3 - 2023-2 5 season) 2024 06/24/2020, 05/27/2020 Dexa Scan (General) 2024 DTaP, Tdap and Td Vaccines ( 2 - Td or Tdap) 09/01/2024 09/01/2014 RSV Immunization or 60+ Years (1 - 1-dose 75+ series) 2034 Meningococcal B Vaccine Aged Out No l onger eligible based on patient's age to complete this topic Meningococcal Vaccine Aged Out No nancy kiya eligible based on patient's age to complete this topic RSV Immunizations Under 20 Months Aged Out No longer eligible b ased on patient's age to complete this topic Additional Health Concerns Infection Onset Date Last Indicated C. difficile 12/13/2016 12/13/2016 Insurance [employer] Care Teams Centrifugal Casting Machine Tender Relationship Specialty Start Date End Date Yoel Silva MD [address] [place] [address] PCP - General INTERNAL MEDICINE 12/09/21
--- OUTSIDE RECORDS SUMMARY | 2024-09-09 10:16 | XMS_ITS | Referral Summary ---
Author Organization [facility] Address [address] [place] [address] Care Team Providers Care Cannon Pinion Adjuster Name Role Phone Yoel Silva MD Primary Care Provider [phone] Anand Bailey MD Unavailable [phone] Allergies Active Allergy Reactions Criticality Noted Date [...] was placed on steroids, followed up with elevator pilot, underwent temporal artery biopsy that was negative [...] was placed on steroids, followed up with elevator pilot, underwent temporal artery biopsy that was negative [...] aura 11/11/2009 Cephalalgia 11/11/2009 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 Social History Tobacco Use Types Packs/Day Years Used Date Smoking Tobacco: Never Assessed Comments Unknown Sex and Gender Information Value Date Recorded Sex Assigned at Not on file 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
--- OUTSIDE RECORDS SUMMARY | 2024-09-09 10:16 | XMS_ITS | Encounter Summary ---
Author Organization [facility] Address 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
--- OUTSIDE RECORDS SUMMARY | 2024-09-09 10:16 | XMS_ITS | Encounter Summary ---
Author Organization [facility] Address [address] [place] [address] Care Team Providers Care Employee Benefits Specialist Name Role Phone Unavailable Primary Care Provider Unavailabl e Encounter Details Date Type Department Care Team (Late st Contact Info) Description 10/24/1999 Outpatient Historical [facility]IMARY [facility]ARE Denise Trent MD [address] [place], [place] [id number] Social History Tobacco Use Types Packs/Day Years Used Date Smoking Tobacco: Never Assessed Comments Unknown Sex and Gender Information Value Date Recorded Sex Assigned at Not on file Legal Sex Female 4:23 AM SHEETING PULLER Gender Identity Not on file Sexual Orientation Not on file documented as of this encounter Plan of Treatment Not on file documented as of this encounter Visit Diagnoses Not on filedocumented in this encounter
--- OUTSIDE RECORDS SUMMARY | 2024-09-09 10:16 | XMS_ITS | Encounter Summary ---
Author Organization [facility] Address [address] [place] [address] Care Team Providers Care Brokerage Manager Name Role Phone Unavailable Primary Care Provider Unavailabl e Encounter Details Date Type Department Care Team (Late st Contact Info) Description 08/26/1998 Outpatient Historical [facility] PRIMARY [facility]ARE Denise Trent MD [address] [place], [place] [id number] Social History Tobacco Use Types Packs/Day Years Used Date Smoking Tobacco: Never Assessed Comments Unknown Sex and Gender Information Value Date Recorded Sex Assigned at Not on file Legal Sex Female 4:23 AM PYROMETER TEMPERATURE REGULATOR Gender Identity Not on file Sexual Orientation Not on file documented as of this encounter Plan of Treatment Not on file documented as of this encounter Visit Diagnoses Not on filedocumented in this encounter
--- OUTSIDE RECORDS SUMMARY | 2024-09-09 10:16 | XMS_ITS | Encounter Summary ---
Author Organization [facility] Address [address] [place] [address] Care Team Providers Care Steward/Stewardess Tourist Class Name Role Phone Unavailable Primary Care Provider Unavailabl e Encounter Details Date Type Department Care Team (Late st Contact Info) Description 11/11/1999 Outpatient Historical [facility] PRIMARY CARE Denise Trent MD [address] [place], [place] [id number] Social History Tobacco Use Types Packs/Day Years Used Date Smoking Tobacco: Never Assessed Comments Unknown Sex and Gender Information Value Date Recorded Sex Assigned at Not on file Legal Sex Female 4:23 AM MUSIC LIBRARY ASSISTANT Gender Identity Not on file Sexual Orientation Not on file documented as of this encounter Plan of Treatment Not on file documented as of this encounter Visit Diagnoses Not on filedocumented in this encounter
--- OUTSIDE RECORDS SUMMARY | 2024-09-09 10:16 | XMS_ITS | Encounter Summary ---
Author Organization [facility] Address [address] [place] [address] Care Team Providers Care Strain Technician Name Role Phone Unavailable Primary Care Provider Unavailabl e Encounter Details Date Type Department Care Team (Late st Contact Info) Description 04/09/2000 Outpatient Historical [facility]IMARY [facility]ARE Denise Trent MD [address] [place], [place] [id number] Social History Tobacco Use Types Packs/Day Years Used Date Smoking Tobacco: Never Assessed Comments Unknown Sex and Gender Information Value Date Recorded Sex Assigned at Not on file Legal Sex Female 4:23 AM DECK WORKER Gender Identity Not on file Sexual Orientation Not on file documented as of this encounter Plan of Treatment Not on file documented as of this encounter Visit Diagnoses Not on filedocumented in this encounter
--- OUTSIDE RECORDS SUMMARY | 2024-09-09 10:16 | XMS_ITS | Encounter Summary ---
Author Organization [facility] Address [address] [place] [address] Care Team Providers Care Top Dyeing Machine Loader Name Role Phone Unavailable Primary Care Provider Unavailabl e Encounter Details Date Type Department Care Team (Late st Contact Info) Description 10/07/1999 Outpatient Historical [facility] PRIMARY [facility]ARE Denise Trent MD [address] [place], [place] [phone] Social History Tobacco Use Types Packs/Day Years Used Date Smoking Tobacco: Never Assessed Comments Unknown Sex and Gender Information Value Date Recorded Sex Assigned at Not on file Legal Sex Female 4:23 AM FINISHED HARDWARE ERECTOR Gender Identity Not on file Sexual Orientation Not on file documented as of this encounter Plan of Treatment Not on file documented as of this encounter Visit Diagnoses Not on filedocumented in this encounter
--- OUTSIDE RECORDS SUMMARY | 2024-09-09 10:16 | XMS_ITS | Encounter Summary ---
Author Organization [facility] Address [address] [place] [address] Care Team Providers Care Technical Artist Name Role Phone Unavailable Primary Care Provider Unavailabl e Encounter Details Date Type Department Care Team (Late st Contact Info) Description 06/08/1998 Outpatient Historical [facility] Denise Trent MD [address] [place], [place] [phone] Social History Tobacco Use Types Packs/Day Years Used Date Smoking Tobacco: Never Assessed Comments Unknown Sex and Gender Information Value Date Recorded Sex Assigned at Not on file Legal Sex Female 4:23 AM FUR REPAIR INSPECTOR Gender Identity Not on file Sexual Orientation Not on file documented as of this encounter Plan of Treatment Not on file documented as of this encounter Visit Diagnoses Not on filedocumented in this encounter
--- OUTSIDE RECORDS SUMMARY | 2024-09-09 10:16 | XMS_ITS | Encounter Summary ---
Author Organization [facility] Address [address] [place] [address] Care Team Providers Care Linoleum Floor Layer Name Role Phone Unavailable Primary Care Provider Unavailabl e Encounter Details Date Type Department Care Team (Late st Contact Info) Description 11/09/1998 Outpatient Historical [facility] PRIMARY [facility]ARE Denise Trent MD [address] [place], [place] [phone] Social History Tobacco Use Types Packs/Day Years Used Date Smoking Tobacco: Never Assessed Comments Unknown Sex and Gender Information Value Date Recorded Sex Assigned at Not on file Legal Sex Female 4:23 AM TORQUE TESTER Gender Identity Not on file Sexual Orientation Not on file documented as of this encounter Plan of Treatment Not on file documented as of this encounter Visit Diagnoses Not on filedocumented in this encounter
--- OUTSIDE RECORDS SUMMARY | 2024-09-09 10:16 | XMS_ITS | Clinical Summary ---
Author Organization [facility] Address [address] [place] [address] Care Team Providers Care Manager Package Name Role Phone Unavailable Primary Care Provider Unavailabl e Allergies Active Allergy Reactions Criticality Noted Date Comments Levofloxacin Hives High 02/20/2013 Penicillins Hives High 02/20/2013 Sulfa (Sulfonamide Antibiotics) Hives High 02/04 Medications lisinopril (PRINIVIL) 20 mg tablet 02/11/2013 Active famotidine (PEPCID) 10 mg tablet Take 10 mg by mouth 2 times daily. Active acetaminophen-c affeine-butalbi cortez (FIORICET) 325-40-50 mg tablet Take 1 Tab by mouth every 4 hours as needed. Active traZODone (DESYREL) 100 mg tablet 12/08/2013 Active tiZANidine (ZANAFLEX) 4 mg Tablet 01/13/2014 Active DULoxetine (CYMBALTA) 30 mg Capsule, Delayed Release(E.C.) 02/10/2014 Activ e MAGNESIUM CITRATE ORAL Take 150 mg by mouth daily. Active cholecalciferol , Vitamin D3, (VITAMIN D3) 2,000 unit Tablet Take by mouth. Active MULTIVITAMIN ORAL Take by mouth. Active GUAIFENESIN/DEX TROMETHORPHAN (MUCINEX DM ORAL) Take 400 mg by mouth. Active ondansetron (ZOFRAN ODT) 4 mg Tablet, Rapid Dissolve Take 4 mg by mouth every 8 hours as needed for Nausea/Emesis Dissolve tablet on top of tongue, then swallow with saliva. . Active diphenhydrAMINE (BENADRYL) 25 mg tablet Take 25 mg by mouth every 6 hours as needed for Allergies. 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 03/11/2014 Overview (03/15/2016): 2014.10 +HPV 2016.11 Pap normal Family History Medical History Relation Name Comments Depression Brother Heart Disease Father Hypertension Father Heart Disease Mother Hypertension Mother Stroke Mother Other Sister 1 endometriosis, fibromyalgia Healthy Sister 2 Relation Name Status Comments Brother Alive Father Alive Mother Alive Sister 1 Alive Sister 2 Alive Social History Tobacco Use Types Packs/Day Years Used Date Smoking Tobacco: Former Smokeless Tobacco: Never Alcohol Use Standard Drinks/Week Comments No 0 (1 standard drink = 0.6 oz pur e alcohol) Comments No Sex and Gender Information Value Date Recorded Sex Assigned at Not on file Legal Sex Female 4:23 AM MANAGER SCHEDULING Gender Identity Not on file Sexual Orientation Not on file Occupation Industry Job Start Date Job End Date Not on file Not on file Not on file Not on file Last Filed Vital Signs Vital Sign Reading Time Taken Comments Blood Pressure 116/72 03/08/2016 9:40 AM CDT Pulse - - Temperature - - Respiratory Rate - - Oxygen Saturation - - Inhaled Oxygen Concentration - - Weight 72.1 kg (159 lb) 03/08/2016 9:40 AM CDT Height 162.6 cm (5' 4 ) 03/08/2016 9:40 AM CDT Body Mass Index 27.29 03/08/2016 9:40 AM CDT Plan of Treatment Health Maintenance Due Date Last Done Comments DTAP/TDAP/TD VACCINES (1 - Tdap) 1978 COLORECTAL SCREENING 2004 Colorectal Cancer Screening 2004 FIT-DNA Q 3 years 2004 FIT/FOBT Q 1 year 2004 Flex Sig/CT Colonography Q 5 years 2004 PNEUMOCOCCAL VACCINE 50+ YEA RS (1 of 1 - PCV) 2009 ZOSTER VACCINE (1 of 2) 2009 BREAST CANCER SCREENING 01/31/2018 01/31/2017, 02/10 INFLUENZA VACCINE (#1) 2023 OSTEOPOROSIS SCREENING 2024 RSV VACCINE (60+ or ) (1 - 1-dose 75+ series) 2034 Procedures Procedure Name Priority Date/Time Associated Diagnosis Comments MAMMO SCREEN BILAT W OR WO CAD Routine 01/31/2017 Screening for breast cancer from Last 3 Months or Most Recently Relevant to Health Maintenance Results * MAMMO DIGITAL SCREEN BILAT (01/31/2017) Anatomical Region Laterality Modality Breast Bilateral Mammography us Brien Gong MD MAMMO ORDERABLES Final Result from Last 3 Months or Most Recently Relevant to Health Maintenance [place] [address] [place] [id number] [place] [id number]
--- OUTSIDE RECORDS SUMMARY | 2024-09-09 10:16 | XMS_ITS | Encounter Summary ---
Author Organization [facility] Address [address] [place] [address] Care Team Providers Care Compressor Operator Name Role Phone Unavailable Primary Care Provider Unavailabl e Encounter Details Date Type Department Care Team (Late st Contact Info) Description 11/17/1998 Outpatient Historical [facility] PRIMARY CARE Denise Trent MD [address] [place], [place] [phone] Social History Tobacco Use Types Packs/Day Years Used Date Smoking Tobacco: Never Assessed Comments Unknown Sex and Gender Information Value Date Recorded Sex Assigned at Not on file Legal Sex Female 4:23 AM KITCHEN ASSISTANT Gender Identity Not on file Sexual Orientation Not on file documented as of this encounter Plan of Treatment Not on file documented as of this encounter Visit Diagnoses Not on filedocumented in this encounter
--- OUTSIDE RECORDS SUMMARY | 2024-09-09 10:16 | XMS_ITS | Encounter Summary ---
Author Organization [facility] Address [address] [place] [address] Care Team Providers Care Cylinder Checker Name Role Phone Unavailable Primary Care Provider Unavailabl e Encounter Details Date Type Department Care Team (Late st Contact Info) Description 09/12/1999 Outpatient Historical [facility]ARE Denise Trent MD [address] [place], [place] [phone] Social History Tobacco Use Types Packs/Day Years Used Date Smoking Tobacco: Never Assessed Comments Unknown Sex and Gender Information Value Date Recorded Sex Assigned at Not on file Legal Sex Female 4:23 AM LATEX FASHIONS DESIGNER Gender Identity Not on file Sexual Orientation Not on file documented as of this encounter Plan of Treatment Not on file documented as of this encounter Visit Diagnoses Not on filedocumented in this encounter
[2024-09-09 10:25] LABS: Hemoglobin A1C 5.4 % (<5.7)
[2024-09-09 10:26] LABS: Alanine Aminotransferase 32 U/L (6-35); Albumin Level 4.2 g/dL (3.5-5.1); Alkaline Phosphatase 60 U/L (38-126); Anion Gap 7 mmol/L (4-12); Aspartate Amino Transferase 27 U/L (14-36); Bilirubin,Total 0.2 mg/dL (0.2-1.3); Blood Urea Nitrogen 22 mg/dL (7-17); Calcium 8.9 mg/dL (8.4-10.2); Carbon Dioxide 26 mmol/L (22-30); Chloride 106 mmol/L (98-107); Cholesterol 192 mg/dL (0-200); Estimated Glomerular Filt Rate > 60; Glucose 80 mg/dL (65-110); HDL Direct 74 mg/dL; Potassium 3.8 mmol/L (3.4-5.0); Sodium 139 mmol/L (137-145); Triglycerides 89 mg/dL (<150)
[2024-09-09 10:38] LABS: LDL Cholesterol Direct 72 mg/dL
[2024-09-09 10:42] LABS: Free T4 Free Thyroxine 0.82 ng/dL (0.78-2.19); Vitamin D 25 Hydroxy 66.1 ng/mL
[2024-09-09 11:32] LABS: Folic Acid 13.1 ng/mL (2.76->20)
== END 2024-09-09 09:39 | disposition home or self-care (01) ==
PROVIDERS: PCP Internal Medicine; Visit Provider Internal Medicine
DX: I10 Essential (primary) hypertension (principal); E53.8 Deficiency of other specified B group vitamins; E55.9 Vitamin D deficiency, unspecified; E78.2 Mixed hyperlipidemia; Z79.899 Other long term (current) drug therapy; Z13.1 Encounter for screening for diabetes mellitus; Z13.29 Encounter for screening for other suspected endocrine disorder
CPT/HCPCS: 36415; 80053; 80061; 81003; 82306; 82607; 82746; 83036; 84439; 84443; 85025

== ENCOUNTER 2024-11-21 13:09 | Outpatient (CLI) | payer MEDICARE, SELFPAY ==
--- NOTE | ~2024-11-21 | CT_ITS ---
CT Scan of the Chest without Contrast: Clinical Indication: Lung cancer screening, nicotine dependence Technique: Contiguous sections were acquired throughout the chest without intravenous contrast. Dose reduction technique was used on this scan by utilizing automated exposure control and iterative recon struction technique. The dose-length product (DLP) was 79.51 mGy-cm. COMPARISON: 11/05/2023 Findings: There is no evidence of any significant mediastinal, hilar or axillary lymphadenopathy. The mediastin al soft tissues appear normal. There is no evidence of pleural or pericardial effusion. Stable calcified right basilar granuloma. No other significant pulmonary nodule seen. Images through the upper abdomen reveal no abnormalities. Impression: Lung RADS 2: Benign appearance. 12 month follow-up screening CT advised. Reviewed, dictated and finalized at [facility]. Impression: Lung RADS 2: Benign appearance. 12 month follow-up screening CT advised.
--- OUTSIDE RECORDS SUMMARY | 2024-11-21 13:12 | XMS_ITS | Clinical Summary ---
Author Organization [facility] Address [address] [place] [address] Care Team Providers Care Cat Breeder Name Role Phone Yoel Silva MD Primary Care Provider [phone] Anand Bailey MD Unavailable Allergies Active Allergy Reactions Criticality Noted Date [...] was placed on steroids, followed up with quilter fixer, underwent temporal artery biopsy that was negative [...] was placed on steroids, followed up with quilter fixer, underwent temporal artery biopsy that was negative [...] 11/11/2009 Surgical History Surgery Date Site/Laterality Comments [facility] TONSILLECTOMY PRIMARY/SEC ONDARY <AGE 12 Tonsillectomy - (Added by TW Conv) SINUS SURGERY Sinus Surgery - (Added by TW Conv) [facility] RADIAL KERATOTOMY Cornea Radial Keratotomy - (Added [...] on file Legal Sex Female 3:12 AM CHAR BELT OPERATOR Gender Identity Not on file Sexual [...] 1:22 PM CDT Height 160 cm (5' 3) 10/10/2023 1:22 PM CDT Body Mass Index [...] - 2023-2 5 season) 2024 06/24/2020, 05/27/2020 Breast Cancer Screening-Mammogram 02/01/2024 01/31/2023, 01/31/2023, 01/24/2022, Additional history exists Well Visit 65+ 2024 DTaP/Tdap/Td Vaccine (2 - Td or Tdap) 09/01/2024 09/01/2014 Influenza Vaccine (Season Ended) 2025 04/26/2023, 02/20/2022, 04/05/2018, Additional history exists Hepatitis B Screening Completed 08/15/2002 , 02/04/2002, 01/01/2002 Insurance [employer] HMO Care Teams Cat Breeder Relationship Specialty Start Date End Date Yoel Silva MD [address] [place] [address] PCP - General Internal Medicine 01/20/22 Anand Bailey MD [address] [place] [address] Consulting Physician Rheumatology 08/17/23
--- OUTSIDE RECORDS SUMMARY | 2024-11-21 13:12 | XMS_ITS | Encounter Summary ---
Author Organization [facility] Address [address] [place] [address] Care Team Providers Care Aids Nurse Name Role Phone Unavailable Primary Care Provider Unavailabl e Encounter Details Date Type Department Care Team (Late st Contact Info) Description 11/09/1998 Outpatient Historical [facility] PRIMARY CARE Denise Trent MD [address] [place], [place] [phone] Social History Tobacco Use Types Packs/Day Years Used Date Smoking Tobacco: Never Assessed Comments Unknown Sex and Gender Information Value Date Recorded Sex Assigned at Not on file Legal Sex Female 4:23 AM SENIOR COMMUNICATIONS SPECIALIST Gender Identity Not on file Sexual Orientation Not on file documented as of this encounter Plan of Treatment Not on file documented as of this encounter Visit Diagnoses Not on filedocumented in this encounter
--- OUTSIDE RECORDS SUMMARY | 2024-11-21 13:12 | XMS_ITS | Encounter Summary ---
Author Organization [facility] Address [address] [place] [address] Care Team Providers Care Civil Defense Director Name Role Phone Unavailable Primary Care Provider Unavailabl e Encounter Details Date Type Department Care Team (Late st Contact Info) Description 05/11/1998 Outpatient Historical [facility] PRIMARY CARE Denise Trent MD [address] [place], [place] [phone] Social History Tobacco Use Types Packs/Day Years Used Date Smoking Tobacco: Never Assessed Comments Unknown Sex and Gender Information Value Date Recorded Sex Assigned at Not on file Legal Sex Female 4:23 AM COMPENSATION INTERN Gender Identity Not on file Sexual Orientation Not on file documented as of this encounter Plan of Treatment Not on file documented as of this encounter Visit Diagnoses Not on filedocumented in this encounter
--- OUTSIDE RECORDS SUMMARY | 2024-11-21 13:12 | XMS_ITS | Encounter Summary ---
Author Organization [facility] Address [address] [place] [address] Care Team Providers Care Technical Expert Name Role Phone Unavailable Primary Care Provider Unavailabl e Encounter Details Date Type Department Care Team (Late st Contact Info) Description 10/24/1999 Outpatient Historical [facility] PRIMARY CARE Denise Trent MD [address] [place], [place] [phone] Social History Tobacco Use Types Packs/Day Years Used Date Smoking Tobacco: Never Assessed Comments Unknown Sex and Gender Information Value Date Recorded Sex Assigned at Not on file Legal Sex Female 4:23 AM PRINTING PRESSMAN Gender Identity Not on file Sexual Orientation Not on file documented as of this encounter Plan of Treatment Not on file documented as of this encounter Visit Diagnoses Not on filedocumented in this encounter
--- OUTSIDE RECORDS SUMMARY | 2024-11-21 13:12 | XMS_ITS | Clinical Summary ---
Author Organization [facility] Address [address] [place] [address] Care Team Providers Care Horticultural Therapist Name Role Phone Unavailable Primary Care Provider [...] on file Legal Sex Female 4:23 AM GARMENT WORKER Gender Identity Not on file Sexual [...] 9:40 AM CDT Height 162.6 cm (5' 4) 03/08/2016 9:40 AM CDT Body Mass Index [...] 2009 BREAST CANCER SCREENING 01/31/2018 01/31/2017, 02/10 OSTEOPOROSIS SCREENING 2024 INFLUENZA VACCINE (#1) 2024 RSV VACCINE (60+ or ) (1 [...] Most Recently Relevant to Health Maintenance [place] [address] [place] [id number]
--- OUTSIDE RECORDS SUMMARY | 2024-11-21 13:12 | XMS_ITS | Clinical Summary ---
Author Organization [facility] Address [address] [place] [address] Care Team Providers Care Circle Beveler Name Role Phone Yoel Silva MD Primary Care Provider [phone] Social History Tobacco Use Types Packs/Day Years [...] difficile 12/13/2016 12/13/2016 Insurance [employer] Care Teams Circle Beveler Relationship Specialty Start Date End Date Yoel Silva MD [address] [place] [address] PCP - General INTERNAL MEDICINE 12/09/21
--- OUTSIDE RECORDS SUMMARY | 2024-11-21 13:12 | XMS_ITS | Referral Summary ---
Author Organization [facility] Address [address] [place] [address] Care Team Providers Care L D Rn Name Role Phone Yoel Silva MD Primary Care Provider [phone] Anand Bailey MD Unavailable [phone] Allergies Active Allergy Reactions Criticality Noted Date [...] was placed on steroids, followed up with chemistry intern, underwent temporal artery biopsy that was negative [...] was placed on steroids, followed up with chemistry intern, underwent temporal artery biopsy that was negative [...] on file Legal Sex Female 3:12 AM LIBRARY TECHNICIAN Gender Identity Not on file Sexual Orientation [...] file Insurance [employer] HMO Care Teams L D Rn Relationship Specialty Start Date End Date Yoel Silva MD [address] [place] [address] PCP - General Internal Medicine 01/20/22 Anand Bailey MD [address] [place] [address] Consulting Physician Rheumatology 08/17/23
--- OUTSIDE RECORDS SUMMARY | 2024-11-21 13:12 | XMS_ITS | Clinical Summary ---
Author Organization [facility] Address [address] [place] [address] Care Team Providers Care Plasterer Maintenance Name Role Phone Yoel Silva MD Primary Care Provider [phone] Source Comments [facility],non-owned Affiliates and Associated Physician Practices is amultiple site organization consisting of ambulatory clinics and hospital sitesin [place], [place], [place] and [place]. This disclosure is being madepursuant to the Care Everywhere program and may not contain all information available regarding this patient. Last updated 18.[facility] Allergies Active Allergy Reactions Criticality Noted Date [...] Propionate (FLONASE ALLERGY RELIEF NA) Active Multiple Vitamins-Criminal Justice Social Worker als (MULTIVITAMIN & MINERAL PO) Active Colver-3 Fatty Acids (fish oil) 1000 MG capsule [...] AM CDT Legal Sex Female 6:31 AM SOLID WASTE TECHNICIAN Gender Identity Female 11/30/2021 10:31 AM CDT [...] 11:19 AM CDT Height 160 cm (5' 3) 02/28/2024 11:19 AM CDT Body Mass Index [...] MEDICARE AWV CALENDAR YEAR 2024 INFLUENZA VACCINE (#1) 2025 02/08/2022 MAMMOGRAM 02/27/2026 02/28/2024, 01/06, 01/24/2022, [...] participate in the care of your patient. [facility] utilizes [employer] as a reminder system to notify patients [...] Health Maintenance Insurance [employer] Care Teams Plasterer Maintenance Relationship Specialty Start Date End Date Yoel Silva MD [address] [place] [address] PCP - General Internal Medicine 02/09/22
--- OUTSIDE RECORDS SUMMARY | 2024-11-21 13:12 | XMS_ITS | Encounter Summary ---
Author Organization [facility] Address [address] [place] [address] Care Team Providers Care Event Coordinator Marketing And Sales Name Role Phone Unavailable Primary Care Provider Unavailabl e Encounter Details Date Type Department Care Team (Late st Contact Info) Description 04/22/1999 Outpatient Historical [facility] PRIMARY CARE Denise Trent MD [address] [place], [place] [id number] Social History Tobacco Use Types Packs/Day Years Used Date Smoking Tobacco: Never Assessed Comments Unknown Sex and Gender Information Value Date Recorded Sex Assigned at Not on file Legal Sex Female 4:23 AM SENIOR MEDICAL DIRECTOR Gender Identity Not on file Sexual Orientation Not on file documented as of this encounter Plan of Treatment Not on file documented as of this encounter Visit Diagnoses Not on filedocumented in this encounter
--- OUTSIDE RECORDS SUMMARY | 2024-11-21 13:12 | XMS_ITS | Encounter Summary ---
Author Organization [facility] Address [address] [place] [address] Care Team Providers Care Developer Analyst Name Role Phone Unavailable Primary Care Provider Unavailabl e Encounter Details Date Type Department Care Team (Late st Contact Info) Description 10/07/1999 Outpatient Historical [facility] PRIMARY CARE Denise Trent MD [address] [place], [place] [phone] Social History Tobacco Use Types Packs/Day Years Used Date Smoking Tobacco: Never Assessed Comments Unknown Sex and Gender Information Value Date Recorded Sex Assigned at Not on file Legal Sex Female 4:23 AM SQUAD SERGEANT Gender Identity Not on file Sexual Orientation Not on file documented as of this encounter Plan of Treatment Not on file documented as of this encounter Visit Diagnoses Not on filedocumented in this encounter
--- OUTSIDE RECORDS SUMMARY | 2024-11-21 13:12 | XMS_ITS | Encounter Summary ---
Author Organization [facility] Address [address] [place] [address] Care Team Providers Care Cardiology Physician Assistant Name Role Phone Unavailable Primary Care Provider Unavailabl e Encounter Details Date Type Department Care Team (Late st Contact Info) Description 06/08/1998 Outpatient Historical HIS [facility] PRIMARY CARE Denise Trent MD [address] [place], [place] [id number] Social History Tobacco Use Types Packs/Day Years Used Date Smoking Tobacco: Never Assessed Comments Unknown Sex and Gender Information Value Date Recorded Sex Assigned at Not on file Legal Sex Female 4:23 AM PUBLIC RECORDS RESEARCHER Gender Identity Not on file Sexual Orientation Not on file documented as of this encounter Plan of Treatment Not on file documented as of this encounter Visit Diagnoses Not on filedocumented in this encounter
--- OUTSIDE RECORDS SUMMARY | 2024-11-21 13:12 | XMS_ITS | Encounter Summary ---
Author Organization [facility] Address [address] [place] [address] Care Team Providers Care Manager Client Name Role Phone Unavailable Primary Care Provider Unavailabl e Encounter Details Date Type Department Care Team (Late st Contact Info) Description 04/09/2000 Outpatient Historical [facility] PRIMARY CARE Denise Trent MD [address] [place], [place] [phone] Social History Tobacco Use Types Packs/Day Years Used Date Smoking Tobacco: Never Assessed Comments Unknown Sex and Gender Information Value Date Recorded Sex Assigned at Not on file Legal Sex Female 4:23 AM TRANSIT BUS DRIVER Gender Identity Not on file Sexual Orientation Not on file documented as of this encounter Plan of Treatment Not on file documented as of this encounter Visit Diagnoses Not on filedocumented in this encounter
--- OUTSIDE RECORDS SUMMARY | 2024-11-21 13:12 | XMS_ITS | Encounter Summary ---
Author Organization [facility] Address [address] [place] [address] Care Team Providers Care Cosmetology Professor Name Role Phone Unavailable Primary Care Provider Unavailabl e Encounter Details Date Type Department Care Team (Late st Contact Info) Description 03/02/1999 Outpatient Historical [facility] PRIMARY CARE Denise Trent MD [address] [place], [place] [id number] Social History Tobacco Use Types Packs/Day Years Used Date Smoking Tobacco: Never Assessed Comments Unknown Sex and Gender Information Value Date Recorded Sex Assigned at Not on file Legal Sex Female 4:23 AM ROCK CUTTER Gender Identity Not on file Sexual Orientation Not on file documented as of this encounter Plan of Treatment Not on file documented as of this encounter Visit Diagnoses Not on filedocumented in this encounter
--- OUTSIDE RECORDS SUMMARY | 2024-11-21 13:12 | XMS_ITS | Encounter Summary ---
Author Organization [facility] Address [address] [place] [address] Care Team Providers Care Production Mechanic Name Role Phone Unavailable Primary Care Provider Unavailabl e Encounter Details Date Type Department Care Team (Late st Contact Info) Description 11/17/1998 Outpatient Historical [facility] PRIMARY CARE Denise Trent MD [address] [place], [place] [id number] Social History Tobacco Use Types Packs/Day Years Used Date Smoking Tobacco: Never Assessed Comments Unknown Sex and Gender Information Value Date Recorded Sex Assigned at Not on file Legal Sex Female 4:23 AM FIRST CRUSHER Gender Identity Not on file Sexual Orientation Not on file documented as of this encounter Plan of Treatment Not on file documented as of this encounter Visit Diagnoses Not on filedocumented in this encounter
--- OUTSIDE RECORDS SUMMARY | 2024-11-21 13:12 | XMS_ITS | Encounter Summary ---
Author Organization [facility] Address [address] [place] [address] Care Team Providers Care Product Development Actuary Name Role Phone Unavailable Primary Care Provider Unavailabl e Encounter Details Date Type Department Care Team (Late st Contact Info) Description 06/29/2000 Outpatient Historical [facility] Denise Trent MD [address] [place], [place] [phone] Social History Tobacco Use Types Packs/Day Years Used Date Smoking Tobacco: Never Assessed Comments Unknown Sex and Gender Information Value Date Recorded Sex Assigned at Not on file Legal Sex Female 4:23 AM OR RN Gender Identity Not on file Sexual Orientation Not on file documented as of this encounter Plan of Treatment Not on file documented as of this encounter Visit Diagnoses Not on filedocumented in this encounter
--- OUTSIDE RECORDS SUMMARY | 2024-11-21 13:12 | XMS_ITS | Encounter Summary ---
Author Organization [facility] Address [address] [place] [address] Care Team Providers Care Firmware Developer Name Role Phone Unavailable Primary Care Provider Unavailabl e Encounter Details Date Type Department Care Team (Late st Contact Info) Description 01/12/2000 Outpatient Historical [facility] PRIMARY CARE Denise Trent MD [address] [place], [place] [phone] Social History Tobacco Use Types Packs/Day Years Used Date Smoking Tobacco: Never Assessed Comments Unknown Sex and Gender Information Value Date Recorded Sex Assigned at Not on file Legal Sex Female 4:23 AM COMMUNITY MANAGER Gender Identity Not on file Sexual Orientation Not on file documented as of this encounter Plan of Treatment Not on file documented as of this encounter Visit Diagnoses Not on filedocumented in this encounter
--- OUTSIDE RECORDS SUMMARY | 2024-11-21 13:12 | XMS_ITS | Encounter Summary ---
Author Organization [facility] Address [address] [place] [address] Care Team Providers Care Multiple Games Dealer Name Role Phone Unavailable Primary Care Provider Unavailabl e Encounter Details Date Type Department Care Team (Late st Contact Info) Description 08/16/2000 Outpatient Historical HIS [facility] PRIMARY CARE Denise Trent MD [address] [place], [place] [phone] Social History Tobacco Use Types Packs/Day Years Used Date Smoking Tobacco: Never Assessed Comments Unknown Sex and Gender Information Value Date Recorded Sex Assigned at Not on file Legal Sex Female 4:23 AM QUALITY WORKER Gender Identity Not on file Sexual Orientation Not on file documented as of this encounter Plan of Treatment Not on file documented as of this encounter Visit Diagnoses Not on filedocumented in this encounter
--- OUTSIDE RECORDS SUMMARY | 2024-11-21 13:12 | XMS_ITS | Encounter Summary ---
Author Organization [facility] Address [address] [place] [address] Care Team Providers Care Data Processing Auditor Name Role Phone Unavailable Primary Care Provider Unavailabl e Encounter Details Date Type Department Care Team (Late st Contact Info) Description 11/11/1999 Outpatient Historical [facility] PRIMARY [facility]ARE Denise Trent MD [address] [place], [place] [id number] Social History Tobacco Use Types Packs/Day Years Used Date Smoking Tobacco: Never Assessed Comments Unknown Sex and Gender Information Value Date Recorded Sex Assigned at Not on file Legal Sex Female 4:23 AM CADDYMASTER Gender Identity Not on file Sexual Orientation Not on file documented as of this encounter Plan of Treatment Not on file documented as of this encounter Visit Diagnoses Not on filedocumented in this encounter
--- OUTSIDE RECORDS SUMMARY | 2024-11-21 13:12 | XMS_ITS | Encounter Summary ---
Author Organization [facility] Address [address] [place] [address] Care Team Providers Care Print Line Supervisor Name Role Phone Unavailable Primary Care Provider Unavailabl e Encounter Details Date Type Department Care Team (Late st Contact Info) Description 08/26/1998 Outpatient Historical HIS [facility] PRIMARY CARE Denise Trent MD [address] [place], [place] [id number] Social History Tobacco Use Types Packs/Day Years Used Date Smoking Tobacco: Never Assessed Comments Unknown Sex and Gender Information Value Date Recorded Sex Assigned at Not on file Legal Sex Female 4:23 AM COOKING INSTRUCTOR Gender Identity Not on file Sexual Orientation Not on file documented as of this encounter Plan of Treatment Not on file documented as of this encounter Visit Diagnoses Not on filedocumented in this encounter
--- OUTSIDE RECORDS SUMMARY | 2024-11-21 13:12 | XMS_ITS | Encounter Summary ---
Author Organization [facility] Address [address] [place] [address] Care Team Providers Care Professional Development Instructor Name Role Phone Unavailable Primary Care Provider Unavailabl e Encounter Details Date Type Department Care Team (Late st Contact Info) Description 02/15/2000 Outpatient Historical [facility] PRIMARY CARE Denise Trent MD [address] [place], [place] [phone] Social History Tobacco Use Types Packs/Day Years Used Date Smoking Tobacco: Never Assessed Comments Unknown Sex and Gender Information Value Date Recorded Sex Assigned at Not on file Legal Sex Female 4:23 AM DOG WALKER Gender Identity Not on file Sexual Orientation Not on file documented as of this encounter Plan of Treatment Not on file documented as of this encounter Visit Diagnoses Not on filedocumented in this encounter
--- OUTSIDE RECORDS SUMMARY | 2024-11-21 13:12 | XMS_ITS | Encounter Summary ---
Author Organization [facility] Address [address] [place] [address] Care Team Providers Care Public Health Educator Name Role Phone Unavailable Primary Care Provider Unavailabl e Encounter Details Date Type Department Care Team (Late st Contact Info) Description 09/12/1999 Outpatient Historical [facility] PRIMARY CARE Denise Trent MD [address] [place], [place] [phone] Social History Tobacco Use Types Packs/Day Years Used Date Smoking Tobacco: Never Assessed Comments Unknown Sex and Gender Information Value Date Recorded Sex Assigned at Not on file Legal Sex Female 4:23 AM CONSTRUCTION MATERIALS TESTER Gender Identity Not on file Sexual Orientation Not on file documented as of this encounter Plan of Treatment Not on file documented as of this encounter Visit Diagnoses Not on filedocumented in this encounter
--- OUTSIDE RECORDS SUMMARY | 2024-11-21 13:12 | XMS_ITS | Encounter Summary ---
Author Organization [facility] Address [address] [place] [address] Care Team Providers Care Reverse Engineer Name Role Phone Yoel Silva MD Primary Care Provider [phone] Reason for Visit * Reason Onset Date Comments Question 02/21/2022 Encounter Details Date Type Department Care Team (Late st Contact Info) Description 02/21/2022 Telephone [facility] [address] [place] [address] Claudia Mars MD [address] [place] [address] Question Social History Tobacco Use [...] AM CDT Legal Sex Female 6:31 AM MANUFACTURING ELECTRICIAN Gender Identity Female 11/30/2021 10:31 AM CDT [...] sooner appt. Pt called back # is [phone] documented in this encounter Plan of Treatment Not on file documented as of this encounter Visit Diagnoses Not on filedocumented in this encounter Care Teams Reverse Engineer Relationship Specialty Start Date End Date Yoel Silva MD [address] [facility] [address] [place] [address] PCP - General Internal Medicine 02/09/22 documented as of this encounter
== END 2024-11-21 13:10 | disposition home or self-care (01) ==
PROVIDERS: PCP Internal Medicine; Visit Provider Internal Medicine
DX: Z12.2 Encounter for screening for malignant neoplasm of respiratory organs (principal); Z87.891 Personal history of nicotine dependence
CPT/HCPCS: 71271

== ENCOUNTER 2025-04-22 15:29 | Outpatient (CLI) | payer MEDICARE, SELFPAY ==
[2025-04-22 16:21] LABS: Hematocrit 41.5 % (37.0-47.0); Hemoglobin 13.6 g/dL (12.0-15.0); Immature Granulocyte Percent A 0.2 % (0-0.5); Lymphocytes Absolute Auto 2.69 K/mm3 (0.9-3.2); Mean Corpuscular HGB Conc 32.8 g/dl (32-36); Mean Corpuscular Hemoglobin 30.1 pg (26-34); Mean Corpuscular Volume 91.8 fl (80-100); Nucleated Red Blood Cells Absolute Auto 0.000 K/mm3 (0.0-0.012); Nucleated Red Blood Cells Perc 0.0 % (0.0-0.2); Platelet Count Result 325 k/mm3 (150-375); Red Blood Count 4.52 M/mm3 (4.2-5.4); White Blood Count 5.6 K/mm3 (4.5-10.0)
[2025-04-22 16:32] LABS: Hemoglobin A1C 5.3 % (<5.7)
[2025-04-22 16:34] LABS: Alanine Aminotransferase 59 U/L (6-35); Albumin Level 4.5 g/dL (3.5-5.1); Alkaline Phosphatase 90 U/L (38-126); Anion Gap 9 mmol/L (4-12); Aspartate Amino Transferase 45 U/L (14-36); Bilirubin,Total 0.4 mg/dL (0.2-1.3); Blood Urea Nitrogen 15 mg/dL (7-17); Calcium 9.5 mg/dL (8.4-10.2); Carbon Dioxide 22 mmol/L (22-30); Chloride 104 mmol/L (98-107); Cholesterol 205 mg/dL (0-200); Estimated Glomerular Filt Rate 55; Glucose 97 mg/dL (65-110); HDL Direct 66 mg/dL; Potassium 3.7 mmol/L (3.4-5.0); Sodium 135 mmol/L (137-145); Total Protein 7.8 g/dL (6.3-8.2); Triglycerides 105 mg/dL (<150)
[2025-04-22 16:51] LABS: Free T4 Free Thyroxine 0.94 ng/dL (0.78-2.19)
[2025-04-22 17:10] LABS: Thyroid Stimulating Hormone 4.590 uIU/mL (0.465-4.680)
--- OUTSIDE RECORDS SUMMARY | 2025-04-22 17:56 | XMS_ITS | Encounter Summary ---
Author Organization [facility] Address [address] [place] [address] Care Team Providers Care Director Of Cardiac Cath Lab Name Role Phone Unavailable Primary Care Provider Unavailabl e Encounter Details Date Type Department Care Team (Late st Contact Info) Description 11/17/1998 Outpatient Historical [facility] PRIMARY CARE Denise Trent MD [address] [place], [place] [id number] Social History Tobacco Use Types Packs/Day Years Used Date Smoking Tobacco: Never Assessed Comments Unknown Sex and Gender Information Value Date Recorded Sex Assigned at Not on file Legal Sex Female 4:23 AM SPECIALTY THERAPIST Gender Identity Not on file Sexual Orientation Not on file documented as of this encounter Plan of Treatment Not on file documented as of this encounter Visit Diagnoses Not on filedocumented in this encounter
--- OUTSIDE RECORDS SUMMARY | 2025-04-22 17:56 | XMS_ITS | Clinical Summary ---
Author Organization [facility] Address [facility] [place] [address] Care Team Providers Care Crown Pouncer Name Role Phone Yoel Silva MD Primary Care Provider [phone] Social History Tobacco Use Types Packs/Day Years [...] 2009 Zoster Vaccines (1 of 2) 2009 Annual Medicare Wellness Visit 2024 Dexa Scan (General) 2024 DTaP, Tdap and Td Vaccines ( 2 - Td or Tdap) 09/01/2024 09/01/2014 COVID-19 Vaccine (3 - 2024-2 6 season) 2025 06/24/2020, 05/27/2020 Influenza Adult (#1) 2025 04/05/2018, 06/09/2013 RSV Immunization or 60+ Years (1 - 1-dose 75+ series) 2034 Hepatitis A Vaccines Aged Out No long er eligible based on patient's age to complete this topic Meningococcal B Vaccine Aged Out No l [...] difficile 12/13/2016 12/13/2016 Insurance [employer] Care Teams Crown Pouncer Relationship Specialty Start Date End Date Yoel Silva MD [address] [place] [address] PCP - General INTERNAL MEDICINE 12/09/21
--- OUTSIDE RECORDS SUMMARY | 2025-04-22 17:56 | XMS_ITS | Encounter Summary ---
Author Organization [facility] Address [address] [place] [address] Care Team Providers Care Vocational Nurse Lvn Name Role Phone Unavailable Primary Care Provider Unavailabl e Encounter Details Date Type Department Care Team (Late st Contact Info) Description 11/11/1999 Outpatient Historical HIS [facility] PRIMARY CARE Denise Trent MD [address] [place], [place] [phone] Social History Tobacco Use Types Packs/Day Years Used Date Smoking Tobacco: Never Assessed Comments Unknown Sex and Gender Information Value Date Recorded Sex Assigned at Not on file Legal Sex Female 4:23 AM PATTERN DRUM MAKER Gender Identity Not on file Sexual Orientation Not on file documented as of this encounter Plan of Treatment Not on file documented as of this encounter Visit Diagnoses Not on filedocumented in this encounter
--- OUTSIDE RECORDS SUMMARY | 2025-04-22 17:56 | XMS_ITS | Encounter Summary ---
Author Organization [facility] Address [address] [place] [address] Care Team Providers Care Internet Sales Associate Name Role Phone Unavailable Primary Care Provider Unavailabl e Encounter Details Date Type Department Care Team (Late st Contact Info) Description 08/26/1998 Outpatient Historical [facility] PRIMARY CARE Denise Trent MD [address] [place], [place] [phone] Social History Tobacco Use Types Packs/Day Years Used Date Smoking Tobacco: Never Assessed Comments Unknown Sex and Gender Information Value Date Recorded Sex Assigned at Not on file Legal Sex Female 4:23 AM PROCESS ARCHITECT Gender Identity Not on file Sexual Orientation Not on file documented as of this encounter Plan of Treatment Not on file documented as of this encounter Visit Diagnoses Not on filedocumented in this encounter
--- OUTSIDE RECORDS SUMMARY | 2025-04-22 17:56 | XMS_ITS | Encounter Summary ---
Author Organization [facility] Address [address] [place] [address] Care Team Providers Care Sap Analyst Name Role Phone Unavailable Primary Care Provider Unavailabl e Encounter Details Date Type Department Care Team (Late st Contact Info) Description 08/16/[address] [facility] PRIMARY CARE Denise Trent MD [address] [place], [place] [phone] Social History Tobacco Use Types Packs/Day Years Used Date Smoking Tobacco: Never Assessed Comments Unknown Sex and Gender Information Value Date Recorded Sex Assigned at Not on file Legal Sex Female 4:23 AM OFFICE MACHINE INSPECTOR Gender Identity Not on file Sexual Orientation Not on file documented as of this encounter Plan of Treatment Not on file documented as of this encounter Visit Diagnoses Not on filedocumented in this encounter
--- OUTSIDE RECORDS SUMMARY | 2025-04-22 17:56 | XMS_ITS | Clinical Summary ---
Author Organization [facility] Address [address] [place] [address] Care Team Providers Care Warehouse General Laborer Name Role Phone Yoel Silva MD Primary Care Provider [phone] Source Comments [facility],non-owned Affiliates and Associated Physician Practices is amultiple site organization consisting of ambulatory clinics and hospital sitesin [place], [place], [place] and [place]. This disclosure is being madepursuant to the Care Everywhere program and may not contain all information available regarding this patient. Last updated 18.[facility] Allergies Active Allergy Reactions Criticality Noted Date [...] Propionate (FLONASE ALLERGY RELIEF NA) Active Multiple Vitamins-[place] als (MULTIVITAMIN & MINERAL PO) Active [place]-3 Fatty Acids (fish oil) 1000 MG capsule [...] Problem Noted Date Diagnosed Date Headache 11/11/2009 Encounters Date Type Department Care Team Description 03/16/2025 10:20 AM FORGING ENGINEER - 03/16/2025 11:59 PM FORGING ENGINEER Hospital Encounter [facility] [address] [place] [address] Yoel Silva MD Discharge Disposition: Home or Self Care 03/03/2025 Travel from Last 3 Months Family History Medical History Relation Name Comments [...] AM CDT Legal Sex Female 6:31 AM FORGING ENGINEER Gender Identity Female 11/30/2021 10:31 AM CDT [...] CDT Inhaled Oxygen Concentration - - Weight 70.3 kg (155 lb) 03/16/2025 10:26 AM FORGING ENGINEER Height 157.5 cm (5' 2) 03/16/2025 10:26 AM FORGING ENGINEER Body Mass Index 28.35 03/16/2025 10:26 AM FORGING ENGINEER Plan of Treatment Health Maintenance Due Date Last Done Comments BONE DENSITY TESTING 1959 COLON MONITORING 1959 COLONOSCOPY - COLON CA SCREENING 1959 CT COLONOGRAPHY - COLON CA SCREENING 1959 FIT - COLON CA SCREENING 1959 FLEX SIG - COLON CA SCREENING 1959 HEPATITIS C SCREENING 04/09/1977 DTAP/TDAP/TD VACCINES (1 - Tdap) 1978 PNEUMOCOCCAL VACCINE 50+ (1 of 1 - PCV) 2009 ZOSTER VACCINE (1 of 2) 2009 SCREENING FOR DIABETES 01/13/2022 DEPRESSION SCREENING 05/07/2024 MEDICARE AWV CALENDAR YEAR 2024 COVID-19 VACCINE ( season) 2025 02/27/2024, 04/26/2023, 09/08/2021, Additional history exists INFLUENZA VACCINE (#1) 2025 , 04/26/2023, 02/20/2022, Additional history exists COLOGUARD (AGES 45-75) - COLON CA SCREENING 03/11/2027 03/11/2024 Colorectal Cancer Screening 03/11/2027 MAMMOGRAM 03/16/2027 03/16/2025, 02/05, 01/31/2023, Additional history exists Respiratory Syncytial Virus (RSV) Vaccine Pt: or over 60 yrs (1 - 1-dose 75+ series) 2034 Cervical Cancer Screening Discontinued PAP SMEAR Discontinued 03/08/2016 HEPATITIS B VACCINE Aged Out No longe [...] on patient's age to complete this topic PAP with HPV Discontinued Procedures Procedure Name Priority Date/Time Associated Diagnosis Comments MAMMO BILAT SCREENING W JOE Routine 03/16/2025 10:31 AM FORGING ENGINEER Encounter for screening mammogram for breast cancer from Last 3 Months Results * Mammo Bilat Screening W Joe (03/16/2025 10:31 AM FORGING ENGINEER) Anatomical Region Laterality Modality Breast Bilateral Mammography 03/16/2025 1:08 PM FORGING ENGINEER Impressions 03/16/2025 1:09 PM FORGING ENGINEER IMPRESSION: No mammographic evidence of malignancy in either breast. ASSESSMENT: BI-RADS CATEGORY 1: NEGATIVE RECOMMENDATION: Bilateral screening mammogram in one year. Thank you for allowing us to participate in the care of your patient. [facility] Breast [facility] utilizes [employer] as a reminder system to notify patients of their next recommended mammogram. > Interpreting Provider: Liliam Lind MD on 03/16/2025 1:09 PM Narrative 03/16/2025 1:09 PM FORGING ENGINEER EXAMINATION: Digital screening mammogram. Low-dose full-field digital breast tomosynthesis examination was performed with synthetic 2D images. Computer assisted detection was utilized. DATE: 03/16/2025 10:42 AM PRIOR: 02/28/2024 and prior mammograms dating back to 2018. BREAST PARENCHYMAL COMPOSITION: Category C: The breasts are heterogeneously dense which may obscure small masses. FINDINGS: No suspicious masses, areas of architectural distortion or microcalcifications are evident on synthetic 2D mammogram or tomosynthesis images. There has been no significant interval change since the prior examination. us Yoel Silva MD MAMMO ORDERABLES Final Result from Last 3 Months Insurance [facility] MEDICARE [employer] Care Teams Warehouse General Laborer Relationship Specialty Start Date End Date Yoel Silva MD [address] [place] [address] PCP - General Internal Medicine 02/09/22
--- OUTSIDE RECORDS SUMMARY | 2025-04-22 17:56 | XMS_ITS | Encounter Summary ---
Author Organization [facility] Address [address] [place] [address] Care Team Providers Care Frickertron Checker Name Role Phone Unavailable Primary Care Provider Unavailabl e Encounter Details Date Type Department Care Team (Late st Contact Info) Description 10/24/1999 Outpatient Historical HIS [facility] PRIMARY CARE Denise Trent MD [address] [place], [place] [phone] Social History Tobacco Use Types Packs/Day Years Used Date Smoking Tobacco: Never Assessed Comments Unknown Sex and Gender Information Value Date Recorded Sex Assigned at Not on file Legal Sex Female 4:23 AM GLUCOSE AND SYRUP WEIGHER Gender Identity Not on file Sexual Orientation Not on file documented as of this encounter Plan of Treatment Not on file documented as of this encounter Visit Diagnoses Not on filedocumented in this encounter
--- OUTSIDE RECORDS SUMMARY | 2025-04-22 17:56 | XMS_ITS | Encounter Summary ---
Author Organization [facility] Address [address] [place] [address] Care Team Providers Care Infectious Diseases Physician Name Role Phone Unavailable Primary Care Provider Unavailabl e Encounter Details Date Type Department Care Team (Late st Contact Info) Description 06/08/1998 Outpatient Historical HIS [facility] PRIMARY CARE Denise Trent MD [address] [place], [place] [phone] Social History Tobacco Use Types Packs/Day Years Used Date Smoking Tobacco: Never Assessed Comments Unknown Sex and Gender Information Value Date Recorded Sex Assigned at Not on file Legal Sex Female 4:23 AM PORT CAPTAIN Gender Identity Not on file Sexual Orientation Not on file documented as of this encounter Plan of Treatment Not on file documented as of this encounter Visit Diagnoses Not on filedocumented in this encounter
--- OUTSIDE RECORDS SUMMARY | 2025-04-22 17:56 | XMS_ITS | Encounter Summary ---
Author Organization [facility] Address [address] [place] [address] Care Team Providers Care Tank House Supervisor Name Role Phone Unavailable Primary Care Provider Unavailabl e Encounter Details Date Type Department Care Team (Late st Contact Info) Description 06/29/2000 Outpatient Historical [facility] Denise Trent MD [address] [place], [place] [id number] Social History Tobacco Use Types Packs/Day Years Used Date Smoking Tobacco: Never Assessed Comments Unknown Sex and Gender Information Value Date Recorded Sex Assigned at Not on file Legal Sex Female 4:23 AM MONEY MARKET DEALER Gender Identity Not on file Sexual Orientation Not on file documented as of this encounter Plan of Treatment Not on file documented as of this encounter Visit Diagnoses Not on filedocumented in this encounter
--- OUTSIDE RECORDS SUMMARY | 2025-04-22 17:56 | XMS_ITS | Encounter Summary ---
Author Organization [facility] Address [address] [place] [address] Care Team Providers Care Educational Adviser Name Role Phone Unavailable Primary Care Provider Unavailabl e Encounter Details Date Type Department Care Team (Late st Contact Info) Description 01/12/2000 Outpatient Historical [facility] Denise Trent MD [address] [place], [place] [id number] Social History Tobacco Use Types Packs/Day Years Used Date Smoking Tobacco: Never Assessed Comments Unknown Sex and Gender Information Value Date Recorded Sex Assigned at Not on file Legal Sex Female 4:23 AM RESOURCING CONSULTANT Gender Identity Not on file Sexual Orientation Not on file documented as of this encounter Plan of Treatment Not on file documented as of this encounter Visit Diagnoses Not on filedocumented in this encounter
--- OUTSIDE RECORDS SUMMARY | 2025-04-22 17:56 | XMS_ITS | Encounter Summary ---
Author Organization [facility] Address 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
--- OUTSIDE RECORDS SUMMARY | 2025-04-22 17:56 | XMS_ITS | Encounter Summary ---
Author Organization [facility] Address 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
--- OUTSIDE RECORDS SUMMARY | 2025-04-22 17:56 | XMS_ITS | Encounter Summary ---
Author Organization [facility] Address [address] [place] [address] Care Team Providers Care Electric Motor Mechanic Name Role Phone Unavailable Primary Care Provider Unavailabl e Encounter Details Date Type Department Care Team (Late st Contact Info) Description 10/07/1999 Outpatient Historical 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
--- OUTSIDE RECORDS SUMMARY | 2025-04-22 17:56 | XMS_ITS | Encounter Summary ---
Author Organization [facility] Address [address] [place] [address] Care Team Providers Care Sponsorship Coordinator Name Role Phone Unavailable Primary Care Provider Unavailabl e Encounter Details Date Type Department Care Team (Late st Contact Info) Description 02/15/2000 Outpatient Historical 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
--- OUTSIDE RECORDS SUMMARY | 2025-04-22 17:57 | XMS_ITS | Encounter Summary ---
Author Organization [facility] Address 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
--- OUTSIDE RECORDS SUMMARY | 2025-04-22 17:57 | XMS_ITS | Encounter Summary ---
Author Organization [facility] Address 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
--- OUTSIDE RECORDS SUMMARY | 2025-04-22 17:57 | XMS_ITS | Encounter Summary ---
Author Organization [facility] Address 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
--- OUTSIDE RECORDS SUMMARY | 2025-04-22 17:57 | XMS_ITS | Encounter Summary ---
Author Organization [facility] Address [address] [place] [address] Care Team Providers Care Meat Puller Name Role Phone Yoel Silva MD Primary Care Provider [phone] Reason for Visit * Reason Onset Date Comments Question 02/21/2022 Encounter Details Date Type Department Care Team (Late st Contact Info) Description 02/21/2022 Telephone [facility] [address] [place] [id number] Claudia Mars MD [address] [place] [id number] Question Social History Tobacco Use Types Packs/Day Years Used Date Smoking Tobacco: Former Cigarettes 0.5 10 0 10/2001 - 10/2011 Smokeless Tobacco: Never Alcohol Use Standard Drinks/Week Comments Yes 0 (1 standard drink = 0.6 oz pur e alcohol) moderately Comments No Sex and Gender Information Value Date Recorded Sex Assigned at Female 11/30/2021 10:31 AM CDT 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 Pt called back # is [phone] documented in this encounter Plan of Treatment Not on file documented as of this encounter Visit Diagnoses Not on filedocumented in this encounter Care Teams Meat Puller Relationship Specialty Start Date End Date Yoel Silva MD [address] [place] [id number] PCP - General Internal Medicine 02/09/22 documented as of this encounter
--- OUTSIDE RECORDS SUMMARY | 2025-04-22 17:57 | XMS_ITS | Clinical Summary ---
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
--- OUTSIDE RECORDS SUMMARY | 2025-04-22 17:57 | XMS_ITS | Encounter Summary ---
Author Organization [facility] Address 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
--- OUTSIDE RECORDS SUMMARY | 2025-04-22 17:57 | XMS_ITS | Clinical Summary ---
Author Organization [facility] Address [address] [place] [address] Care Team Providers Care Makeup Sales Consultant Name Role Phone Yoel Silva MD Primary Care Provider [phone] Anand Bailey MD Unavailable [phone] Allergies Active Allergy Reactions Criticality Noted Date [...] was placed on steroids, followed up with [place], underwent temporal artery biopsy that was negative [...] was placed on steroids, followed up with [place], underwent temporal artery biopsy that was negative [...] 11/11/2009 Surgical History Surgery Date Site/Laterality Comments ND TONSILLECTOMY PRIMARY/SEC ONDARY <AGE 12 Tonsillectomy - (Added by TW Conv) SINUS SURGERY Sinus Surgery - (Added by TW Conv) ND RADIAL KERATOTOMY Cornea Radial Keratotomy - (Added [...] on file Legal Sex Female 3:12 AM INSULATION 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 Gender Identity Not on file Sexual Orientation [...] Health Maintenance Due Date Last Done Comments Colon Cancer Screening-Colonoscopy 1959 Depression Screening 1959 Fall Risk Assessment 1959 Hepatitis C Screening 1959 Osteoporosis Screening-Bone Density Scan 1959 Pneumococcal vaccine 65+ (1 of 1 - PCV) 2009 Zoster Vaccine (2 of 2) 04/17/2022 02/20/2022 Breast Cancer Screening-Mammogram 02/01/2024 01/31/2023, 01/31/2023, 01/24/2022, Additional history exists Well Visit 65+ 2024 DTaP/Tdap/Td Vaccine (2 - Td or Tdap) 09/01/2024 09/01/2014 Covid-19 Vaccine (3 - 2024-2 6 season) 2025 06/24/2020, 05/27/2020 Influenza Vaccine (#1) 2025 , 02/20/2022, 04/05/2018, Additional history exists Hepatitis B Screening Completed 08/15/2002 , 02/04/2002, 01/01/2002 Insurance [employer] HMO Care Teams Makeup Sales Consultant Relationship Specialty Start Date End Date Yoel Silva MD PCP - General Internal Medicine 01/20/22 Anand Bailey MD [address] [place] [address] Consulting Physician Rheumatology 08/17/23
== END 2025-04-22 15:30 | disposition home or self-care (01) ==
LOC: ANHLAB 15:31
PROVIDERS: PCP Internal Medicine; Visit Provider Internal Medicine
DX: E78.2 Mixed hyperlipidemia (principal); I10 Essential (primary) hypertension; Z79.899 Other long term (current) drug therapy; Z13.29 Encounter for screening for other suspected endocrine disorder
CPT/HCPCS: 36415; 80053; 80061; 83036; 84439; 84443; 85025